=== PATIENT | female | born 1975 | race Caucasian/White ===

== ENCOUNTER 2023-07-09 09:52 | Outpatient (RCR) | payer OTHER, SELFPAY | END 2023-07-09 23:59 | disposition home or self-care (01) | LOC: RPT 09:52 | PROVIDERS: ATTENDING PHYSICIAN Orthopaedic Surgery; FAMILY PHYSICIAN Internal Medicine | DX: Z47.1 Aftercare following joint replacement surgery (principal); Z96.651 Presence of right artificial knee joint; M25.561 Pain in right knee; R26.89 Other abnormalities of gait and mobility | CPT/HCPCS: 97010; 97110; 97116; 97140; 97161; 97530 ==

== ENCOUNTER 2023-08-03 06:54 | Outpatient (RCR) | payer OTHER, SELFPAY | END 2023-08-03 23:59 | disposition home or self-care (01) | LOC: RPT 06:54 | PROVIDERS: ATTENDING PHYSICIAN Orthopaedic Surgery; FAMILY PHYSICIAN Internal Medicine | DX: Z47.1 Aftercare following joint replacement surgery (principal); M25.561 Pain in right knee; Z73.6 Limitation of activities due to disability; R26.89 Other abnormalities of gait and mobility; Z96.651 Presence of right artificial knee joint | CPT/HCPCS: 97010; 97110; 97112; 97116; 97530 ==

== ENCOUNTER 2023-08-19 08:24 | Outpatient (RCR) | payer OTHER, SELFPAY | END 2023-08-19 23:59 | disposition home or self-care (01) | LOC: RPT 08:24 | PROVIDERS: ATTENDING PHYSICIAN Orthopaedic Surgery; FAMILY PHYSICIAN Internal Medicine | DX: Z47.1 Aftercare following joint replacement surgery (principal); M25.561 Pain in right knee; Z73.6 Limitation of activities due to disability; R26.89 Other abnormalities of gait and mobility; Z96.651 Presence of right artificial knee joint | CPT/HCPCS: 97010; 97110; 97530 ==

== ENCOUNTER → 2023-09-08 06:46 | Outpatient (REF) | payer OTHER, SELFPAY | LOC: WDC 06:46 | PROVIDERS: ATTENDING PHYSICIAN Nurse Practitioner Family | DX: Z12.31 Encounter for screening mammogram for malignant neoplasm of breast (principal) | CPT/HCPCS: 77063; 77067 ==

== ENCOUNTER 2023-10-11 02:21 | Emergency (ER) | payer OTHER, SELFPAY ==
[2023-10-11 02:23] VITALS: BP 126/83
[2023-10-11] MEDS: ZOFRAN ODT (ORALLY DISINTEGRATING) 4 MG PO (04:38)
[2023-10-11] MEDS: DILAUDID 1 MG IM (04:38)
[2023-10-11 04:41] VITALS: BP 117/81
[2023-10-11 04:59] LABS: Urine Albumin Negative (Neg - Trace); Urine Bilirubin Negative (Negative); Urine Character Clear (Clear); Urine Color Yellow; Urine Glucose Negative (Negative); Urine Ketone Negative (Negative); Urine Leukocyte Negative (Negative); Urine Nitrite Negative (Negative); Urine Occult Blood Negative (Negative); Urine Urobilinogen Negative (Neg - 1+)
[2023-10-11 05:00] VITALS: BP 112/76
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
[2023-10-11 06:00] VITALS: BP 98/65
== END 2023-10-11 06:30 | disposition home or self-care (01) ==
LOC: EMR 02:21
PROVIDERS: EMERGENCY PHYSICIAN Student in an Organized Health Care Education/Training Program
DX: M54.50 Low back pain, unspecified (principal); G89.29 Other chronic pain
CPT/HCPCS: 99284; 96372; 81003

== ENCOUNTER 2023-11-03 04:03 | Emergency (ER) | payer OTHER, SELFPAY ==
[2023-11-03 04:04] VITALS: BP 140/86
[2023-11-03 04:25] VITALS: BMI 36.4
--- NOTE | 2023-11-03 04:43 | ED.GENMED ---
History of Present Illness
<NATE Pond - Last Filed: 11/03/23 06:04>
General
Chief Complaint: Back Pain
Source: patient
Exam Limitations: none
Time Seen by Provider: 11/03/23 04:41
Nursing documentation reviewed up to this point in time: agreed with
Travel History
Have you had any contact with someone who has COVID-19?: No
Do you have any symptoms of coronavirus? Fever > 100 degrees, chills, cough, shortness of breath, sore throat, loss of taste or smell, muscle aches, or headache?: No
History of Present Illness
History of Present Illness:
This is a 48 year old female with PMHx hypothyroidism, bipolar disorder, anxiety, depression and chronic back pain who presents to the ED for acute on chronic low back pain x1 day. She was seen in the ED on 10/11/2023 for similar symptoms where she
received Hydromorphone IM and Zofran and was advised to continue management with Dr. Escudero, pain management. She does not recall what caused this flare up but reports pain is worse with flexion and alleviated with sitting down. She took Percocet
around 3pm today which alleviated pain for temporarily. She has an scheduled appointment with Dr. Escudero in the upcoming weeks. She denies bowel or bladder incontinence, saddle paresthesias, urinary symptoms. She denies any new injuries. She
denies any recent strenuous activity or extreme exercise.
Past History
<NATE Pond - Last Filed: 11/03/23 06:04>
Past History
ED Past Medical History: Hypothyroidism, Psychiatric (Bipolar disorder, Anxiety, Depression) and Other (Migrainous headaches, ovarian cysts, endometriosis); Negative Asthma, Cancer, HTN, Hypercholesterolemia or NIDDM
ED Past Surgical History: Cholecystectomy, Gynecological (Uterine ablation, Hysterectomy), Orthopedic (Bilateral knee arthroscopy, left dorsal hand nodule removal) and Tonsilectomy
Social History
Tobacco: Non-smoker
Alcohol: Occasional
Drug: None
Personal: Single
Living: alone
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
Family History
Family History: Diabetes
Review of Systems
<NATE Pond - Last Filed: 11/03/23 06:04>
Review of Systems
Allergies reviewed?: Yes
All Other Systems: Not applicable
Constitutional: Reports no symptoms
EENT: Reports no symptoms
Respiratory: Reports no symptoms
Cardiac: Reports no symptoms
ABD/GI: Reports no symptoms
: Reports no symptoms
Musculoskeletal: Reports back pain
Skin: Reports no symptoms
Neurological: Reports no symptoms
Endocrine: Reports no symptoms
Hematologic/Lymphatic: Reports no symptoms
Psychiatric: Reports no symptoms
Phy Exam
<ST SaltyDC - Last Filed: 11/03/23 06:04>
General Physical Exam
General Presentation: well appearing and no apparent distress
General Skin: warm and dry
General Habitus: normal
General Mental: alert
General Hydration: appears well hydrated
ENT Exam
ENT Exam: EOMI, pharynx normal, neck supple and normocephalic
Eye Exam
Eye Exam: PERRL, cornea clear and conjunctiva normal
Cardiovascular Exam
Cardiovascular Exam: regular rate/rhythm, no edema, no murmur and normal peripheral pulses
Pulmonary Exam
Pulmonary Exam: lungs clear, no respiratory distress, no rales, no crackles, no rhonchi, no stridor, no wheezing and no cough
Gastrointestinal Exam
Gastrointestinal Exam: normal bowel sounds, non tender, soft, no organomegaly, no pulsatile mass and non distended
Neurological Exam
Neurological Exam: alert, oriented x3, no motor deficits and speech normal
Musculoskeletal Exam
Musculoskeletal Exam: full ROM and no edema
Skin Exam
Skin Exam: normal color, warm/dry, no rash and no petechia
Psychiatric Exam
Psychiatric Exam: normal mood/affect
Course
<NATE Pond - Last Filed: 11/03/23 06:04>
Orders/Labs/Results
Orders:
Orders
11/03/23 05:46
HYDROmorphone [Dilaudid] 1 mg IM NOW STA
Ondansetron Orally Disint [Zofran Odt (Orally Disintegrating)] 4 mg PO NOW STA
Vital Signs
Initial and Last Documented VS:
Initial Vital Signs
Temp Pulse Resp BP Pulse Ox
97.8 F 116 24 140/86 98
11/03/23 04:04 11/03/23 04:04 11/03/23 04:04 11/03/23 04:04 11/03/23 04:04
Last Documented Vital Signs
Temp Pulse Resp BP Pulse Ox
97.8 F 93 20 117/69 94
11/03/23 04:04 11/03/23 05:52 11/03/23 05:52 11/03/23 05:52 11/03/23 05:52
<Taj Tucker DO - Last Filed: 11/03/23 06:27>
Orders/Labs/Results
Orders:
Orders
11/03/23 05:46
HYDROmorphone [Dilaudid] 1 mg IM NOW STA
Ondansetron Orally Disint [Zofran Odt (Orally Disintegrating)] 4 mg PO NOW STA
Vital Signs
Initial and Last Documented VS:
Initial Vital Signs
Temp Pulse Resp BP Pulse Ox
97.8 F 116 24 140/86 98
11/03/23 04:04 11/03/23 04:04 11/03/23 04:04 11/03/23 04:04 11/03/23 04:04
Last Documented Vital Signs
Temp Pulse Resp BP Pulse Ox
97.8 F 93 20 117/69 94
11/03/23 04:04 11/03/23 05:52 11/03/23 05:52 11/03/23 05:52 11/03/23 05:52
<NATE Pond - Last Filed: 11/03/23 06:04>
MDM/Problems Addressed
Differential Diagnosis Includes:
Low back pain exacerbation, muscle strain, cauda equina
Muscle strain considered due to back pain but normal physical exam. She is not TTP on MSK exam. Cauda equina considered but she denies bladder/bowel incontinence or saddle paresthesias. I suspect this is low back pain exacerbation due to chronicity
of her back pain with occasional flare ups.
<NATE oPnd - Last Filed: 11/03/23 06:04>
*Critical Care Note
Total Time (30-74mins, 75-104mins- exclusive of procedures): Not Applicable
<Taj Tucker DO - Last Filed: 11/03/23 06:27>
Update Note
Update Note:
Patient has an appointment with Dr Rainey in the next few weeks.
ED Attending Note
<NATE Pond - Last Filed: 11/03/23 06:04>
-
Portions of this chart may have been created with voice recognition software.� Occasional wrong word or��sound alike� substitutions may have occurred due to the inherent limitations of voice recognition software.
<Taj Tucker DO - Last Filed: 11/03/23 06:27>
ED Attending Note
Patient seen and examined by attending physician: Yes
I performed the substantive portion of visit, reviewed & personally made and approve the management plan that is documented in note by myself or ANEESH.: Yes
ED Attending Note:
Pleasant 48-year-old female who presents with acute on chronic low back pain. She states that she started to have pain yesterday. She contacted her pain management doctor who did not return her call so she came into the emergency department. She
was seen in the ER several weeks ago for identical pain and states that shot was able to fix her back. She denies fever chills nausea or vomiting. Reports no chest pain or shortness of breath. Denies bowel and bladder retention or incontinence.
States that this pain is the exact same pain that she typically gets when she has not had an intra-articular facet injection. Patient was seen in conjunction with the PA student. I have reviewed and agree with the history and treatment plan
presented. On my independent physical exam, patient is awake, alert, and oriented x3, resting comfortably on the bed. Heart is regular rate and rhythm. Lung exam clear to auscultation bilaterally. No wheezes rales or rhonchi present. Moves all
4 extremities. Denies paresthesias.
Patient did receive a shot of intramuscular Dilaudid. This has worked for her in the past. She does understand that we cannot continue to do this for her. She will be more on top of her pain management prescriptions.
Discharge Plan
Departure
Patient Disposition: Home (Routine Discharge)
Date of Disposition: 11/03/23
Time of Disposition: 05:46
Patient with high blood pressure during this ER visit?: No
Condition: Good
Covid-19: Not Applicable
Discharge Problem:
Chronic back pain
Instructions: Low Back Pain (DC)
Prescriptions:
No Action
duloxetine 60 MG capsule,delayed release(DR/EC)
60 mg PO DAILY
lamotrigine [Lamictal XR] 250 MG tablet extended release 24hr
250 mg PO DAILY
quetiapine [Seroquel] 100 mg Tablet
100 mg PO DAILY
selenium 200 mcg Tablet
200 mcg PO DAILY
gabapentin 800 mg Tablet
800 mg PO DAILY
levothyroxine [Synthroid] 200 mcg Tablet
200 mcg PO DAILY
topiramate [Topamax] 200 mg Tablet
200 mg PO DAILY
Vraylar 1.5 mg Capsule
1.5 mg PO DAILY
oxycodone-acetaminophen [Endocet] 5-325 mg tablet
1 tab PO Q6H PRN (Reason: pain) Qty: 15 0RF
Rx Instructions:
1-2 tabs every 6 hours prn mod-severe pain
Referrals:
Jeremie Conley I., DO [Family Provider] -
Activity Restrictions/Additional Instructions:
It was a pleasure meeting you and taking part in your care. We hope for your continued healing and wellness.
Please read discharge instructions in their entirety. However, they are for general education and may not describe your exact diagnosis at discharge. Information on your ER visit and medical conditions were discussed with you along with appropriate
follow up information...
If indicated, please take your medications as instructed and indicated on discharge paperwork.
Please schedule a follow up appointment as directed. Call to schedule an appointment
Please return to the emergency department with ANY change in, persisting, or worsening of symptoms. If any of your symptoms do not improve, or persist, or become more severe within 6-12 hours, please return to the emergency department for further
care.
Please return to the emergency department if you develop a headache, neck pain/stiffness, fever greater than 100.4F, chest pain, shortness of breath, persistent nausea, vomiting, slurred speech, difficulty walking, numbness/tingling, weakness, signs
of infection or any other symptoms that are worrisome to you.
If you have any questions or concerns please do not hesitate to call the Hospital at or E-mail me directly at [email or web address]
Interventions
Interventions:
*Risk Screen - Suicide Last Done: 11/03/23 04:04
*General Assessment Last Done: 11/03/23 04:25
*Neglect/Abuse Screening Last Done: 11/03/23 04:04
ED- Fall Risk Assessment Last Done: 11/03/23 04:25
*ED COVID-19 Vaccine History Last Done: 11/03/23 04:25
ED-Musculoskeletal Assessment Last Done: 11/03/23 04:25
Discharge Date and Time
Print Language: FRISIAN
[2023-11-03 05:52] VITALS: BP 117/69
[2023-11-03] MEDS: ZOFRAN ODT (ORALLY DISINTEGRATING) 4 MG PO (05:54)
[2023-11-03] MEDS: DILAUDID 1 MG IM (05:54)
== END 2023-11-03 06:37 | disposition home or self-care (01) ==
LOC: EMR 04:03
PROVIDERS: EMERGENCY PHYSICIAN Student in an Organized Health Care Education/Training Program; FAMILY PHYSICIAN Internal Medicine
DX: G89.29 Other chronic pain (principal); M54.50 Low back pain, unspecified; E03.9 Hypothyroidism, unspecified; F31.9 Bipolar disorder, unspecified; F41.9 Anxiety disorder, unspecified
CPT/HCPCS: 99284; 96372

== ENCOUNTER → 2023-11-15 07:32 | Outpatient (REF) | payer OTHER, SELFPAY | LOC: EMG 07:32 | PROVIDERS: ATTENDING PHYSICIAN Physician Assistant Medical; FAMILY PHYSICIAN Internal Medicine | DX: R20.0 Anesthesia of skin (principal) | CPT/HCPCS: 95886; 95911 ==

== ENCOUNTER → 2023-11-17 07:35 | Outpatient (REF) | payer OTHER, SELFPAY | LOC: RAD 07:35 | PROVIDERS: ATTENDING PHYSICIAN Physician Assistant Medical; FAMILY PHYSICIAN Internal Medicine | DX: M54.16 Radiculopathy, lumbar region (principal) | CPT/HCPCS: 72131 ==

== ENCOUNTER → 2023-11-18 10:29 | Outpatient (REF) | payer OTHER, SELFPAY | LOC: RAD 10:29 | PROVIDERS: ATTENDING PHYSICIAN Physician Assistant Medical; FAMILY PHYSICIAN Internal Medicine | DX: M54.16 Radiculopathy, lumbar region (principal) | CPT/HCPCS: 72110 ==

== ENCOUNTER 2023-12-10 18:36 | Emergency (ER) | payer OTHER, SELFPAY ==
[2023-12-10 18:39] VITALS: BP 139/88
[2023-12-10 19:32] VITALS: BMI 34.6
[2023-12-10 20:02] LABS: % Basophils 0.4 % (0-2); % Eosinophils 0.8 % (0-6); % Immature Granulocytes 0.4 % (0-0.5); % Lymphocytes 31.8 % (20.5-51.1); % Monocytes 8.1 % (1.7-9.3); % Neutrophils 58.5 % (42.2-75.2); Absolute Eosinophils 0.1 10^3/uL (0-0.7); Absolute Lymphocytes 2.4 10^3/uL (1.2-3.4); Absolute Monocytes 0.6 10^3/uL (0.1-0.6); Absolute Neutrophils 4.4 10^3/uL (1.4-6.5); Hematocrit 35.4 % (37.0-47.0); Hemoglobin 12.4 g/dL (12.0-16.0); Mean Corpuscular Hgb 31.2 pg (27.0-31.0); Mean Corpuscular Volume 88.9 fL (81.0-99.0); Mean Platelet Volume 11.3 fL (7.4-10.4); Nucleated Red Blood Cells % 0 %; Platelet Count 227 10^3/uL (130-400); Red Blood Cell Count 3.98 10^6/uL (4.20-5.40); Red Cell Dist. Width 13.4 % (11.5-14.5); White Blood Cell Count 7.6 10^3/uL (4.8-10.8)
[2023-12-10] MEDS: ZOFRAN ODT (ORALLY DISINTEGRATING) 4 MG PO (20:44)
[2023-12-10] MEDS: IMODIUM 2 MG PO (20:44)
[2023-12-10 20:45] VITALS: BP 118/71
[2023-12-10 20:45] LABS: Blood Urea Nitrogen 18 mg/dl (7-17); Carbon Dioxide 17 mmol/L (22-30); Chloride 111 mmol/L (98-107); Estimated Creatinine Clearance > 125 ml/min; Glucose 134 mg/dl (70-99); Sodium 138 mmol/L (135-145); eGFR > 60.00
--- NOTE | 2023-12-10 20:53 | ED.GENMED ---
History of Present Illness
General
Chief Complaint: Abdominal Pain
Source: patient
Exam Limitations: none
Time Seen by Provider: 12/10/23 20:07
Nursing documentation reviewed up to this point in time: agreed with
Travel History
Have you had any contact with someone who has COVID-19?: No
Do you have any symptoms of coronavirus? Fever > 100 degrees, chills, cough, shortness of breath, sore throat, loss of taste or smell, muscle aches, or headache?: No
History of Present Illness
History of Present Illness:
48-year-old female presenting to the emergency department today with concerns of diarrhea over the past 5 days has been taking Pepto-Bismol without relief has had slightly less diarrhea over the past few days did notice some upper abdominal pain.
Stool has been very dark in color. No chest pain shortness of breath.
Past History
Past History
ED Past Medical History: Hypothyroidism, Psychiatric (Bipolar disorder, Anxiety, Depression) and Other (Migrainous headaches, ovarian cysts, endometriosis); Negative Asthma, Cancer, HTN, Hypercholesterolemia or NIDDM
ED Past Surgical History: Cholecystectomy, Gynecological (Uterine ablation, Hysterectomy), Orthopedic (Bilateral knee arthroscopy, left dorsal hand nodule removal) and Tonsilectomy
Social History
Tobacco: Non-smoker
Alcohol: Occasional
Drug: None
Personal: Single
Living: alone
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
Family History
Family History: Diabetes
Review of Systems
Review of Systems
Allergies reviewed?: Yes
All Other Systems: ROS reviewed and negative except as documented in HPI and ROS
Phy Exam
Physical Exam
Physical Exam:
GENERAL: Alert , in no apparent distress
EYE: pupils equal and reactive
NECK: Supple, no significant adenopathy.
ENT: o/p clr, mmm.
CARDIAC: Regular rate and rhythm .
LUNGS: Clear breath sounds bilaterally, no acute respiratory distress, no wheezes/rales/rhonchi
ABDOMEN: Soft, without focal tenderness, no r/g, no cvat rectal examination revealing dark brown almost black appearing stool but guaiac negative.
NEUROLOGICAL: Alert and oriented, no focal neuro deficits
SKIN: Warm and dry, skin intact.
MUSCULOSKELETAL: No edema, well perfused.
PSYCH: Normal and appropriate interaction.
Course
Orders/Labs/Results
Orders:
Orders
12/10/23 19:39
Basic Metabolic Panel Urgent
Comment: BMP NO K
Complete Blood Count/With Diff Urgent
12/10/23 20:37
STOOL [C difficile Antigen & Toxins] Urgent
MARTHA Source: Feces/Stool
Specimen Description:
Stool Culture Urgent
MARTHA Source: Feces/Stool
Specimen Description:
Yersinia Culture-Stool Urgent
MARTHA Source: Feces/Stool
Specimen Description:
Loperamide [Imodium] 2 mg PO NOW STA
Ondansetron Orally Disint [Zofran Odt (Orally Disintegrating)] 4 mg PO NOW STA
12/10/23 21:21
Comprehensive Metabolic Panel Urgent
Lipase Urgent
Abnormal Lab Results
12/10/23 12/10/23
19:39 21:21
RBC 3.98 L 10^6/uL
(4.20-5.40)
Hct 35.4 L %
(37.0-47.0)
MCH 31.2 H pg
(27.0-31.0)
MPV 11.3 H fL
(7.4-10.4)
Chloride 111 H mmol/L 113 H mmol/L
(98-107) (98-107)
Carbon Dioxide 17 L mmol/L 18 L mmol/L
(22-30) (22-30)
BUN 18 H mg/dl
(7-17)
Glucose 134 H mg/dl 119 H mg/dl
(70-99) (70-99)
12/10/23 19:39
12/10/23 21:21
Vital Signs
Initial and Last Documented VS:
Initial Vital Signs
Temp Pulse Resp BP Pulse Ox
97.6 F 104 20 139/88 97
12/10/23 18:39 12/10/23 18:39 12/10/23 18:39 12/10/23 18:39 12/10/23 18:39
Last Documented Vital Signs
Temp Pulse Resp BP Pulse Ox
97.6 F 76 16 118/71 100
12/10/23 18:39 12/10/23 20:45 12/10/23 20:45 12/10/23 20:45 12/10/23 20:45
MDM/Problems Addressed
MDM/Problems Addressed:
48-year-old female presenting to the emergency department today with concerns of ongoing diarrhea for about 5 days. Upon arrival mildly tachycardic but otherwise vital signs are normal afebrile. Heart rate improving to the 70s after receiving some
fluids. Labs obtained without any white count normal hemoglobin rectal examination reveals no blood in the stool. Dark discoloration of stool likely secondary to Pepto-Bismol usage. Concerning the patient's ongoing diarrhea stool cultures were
sent otherwise patient does have benign abdomen vital signs stable appears to be stable for outpatient management.
*Critical Care Note
Total Time (30-74mins, 75-104mins- exclusive of procedures): Not Applicable
ED Attending Note
-
Portions of this chart may have been created with voice recognition software.� Occasional wrong word or��sound alike� substitutions may have occurred due to the inherent limitations of voice recognition software.
Discharge Plan
Departure
Patient Disposition: Home (Routine Discharge)
Date of Disposition: 12/10/23
Time of Disposition: 22:49
Patient with high blood pressure during this ER visit?: No
Condition: Good
Covid-19: Not Applicable
Discharge Problem:
Diarrhea
Instructions: Diarrhea, Adult ED
Prescriptions:
No Action
duloxetine 60 MG capsule,delayed release(DR/EC)
60 mg PO DAILY
lamotrigine [Lamictal XR] 250 MG tablet extended release 24hr
250 mg PO DAILY
quetiapine [Seroquel] 100 mg Tablet
100 mg PO DAILY
selenium 200 mcg Tablet
200 mcg PO DAILY
gabapentin 800 mg Tablet
800 mg PO DAILY
levothyroxine [Synthroid] 200 mcg Tablet
200 mcg PO DAILY
topiramate [Topamax] 200 mg Tablet
200 mg PO DAILY
Vraylar 1.5 mg Capsule
1.5 mg PO DAILY
oxycodone-acetaminophen [Endocet] 5-325 mg tablet
1 tab PO Q6H PRN (Reason: pain) Qty: 15 0RF
Rx Instructions:
1-2 tabs every 6 hours prn mod-severe pain
Referrals:
Jeremie Conley I., DO [Family Provider] -
Activity Restrictions/Additional Instructions:
You came to the emergency department today with concerns of diarrhea. Here you had a reassuring assessment with normal labs. You can take Imodium 1 tab every 4-6 hours as needed over the next few days return to the emergency department for any
worsening, new or concerning symptoms.
Interventions
Interventions:
*Risk Screen - Suicide Last Done: 12/10/23 19:32
*General Assessment Last Done: 12/10/23 18:43
*Neglect/Abuse Screening Last Done: 12/10/23 19:32
*ED COVID-19 Vaccine History Last Done: 12/10/23 18:43
TQ-Dpnzxf-Yhuztsyqns Assessment Last Done: 12/10/23 19:32
Discharge Date and Time
Print Language: BANGLADESHI
[2023-12-10 21:51] LABS: ALT (SGPT) 11 U/L (0-35); AST (SGOT) 18 U/L (14-36); Albumin 3.7 g/dl (3.5-5.0); Alkaline Phosphatase 68 U/L (38-126); Blood Urea Nitrogen 16 mg/dl (7-17); Calcium 8.9 mg/dl (8.4-10.2); Carbon Dioxide 18 mmol/L (22-30); Chloride 113 mmol/L (98-107); Estimated Creatinine Clearance > 125 ml/min; Glucose 119 mg/dl (70-99); Lipase 141 U/L (23-300); Potassium 3.5 mmol/L (3.5-5.1); Sodium 140 mmol/L (135-145); Total Bilirubin 0.2 mg/dl (0.2-1.3); Total Protein 6.5 g/dl (6.3-8.2); eGFR > 60.00
== END 2023-12-10 23:20 | disposition home or self-care (01) ==
LOC: EMR 18:36
PROVIDERS: Emergency Medicine; EMERGENCY PHYSICIAN Emergency Medicine; FAMILY PHYSICIAN Internal Medicine
DX: R19.7 Diarrhea, unspecified (principal); E03.9 Hypothyroidism, unspecified; F31.9 Bipolar disorder, unspecified; F41.9 Anxiety disorder, unspecified; Z83.3 Family history of diabetes mellitus; Z90.49 Acquired absence of other specified parts of digestive tract; Z90.710 Acquired absence of both cervix and uterus
CPT/HCPCS: 99283; 80048; 80053; 83690; 85025

== ENCOUNTER → 2023-12-13 06:33 | Outpatient (REF) | payer OTHER, SELFPAY | LOC: MRI 06:33 | PROVIDERS: ATTENDING PHYSICIAN Orthopaedic Surgery; FAMILY PHYSICIAN Internal Medicine | DX: M25.562 Pain in left knee (principal) | CPT/HCPCS: 73721 ==

== ENCOUNTER 2024-01-04 17:16 | Emergency (ER) | payer OTHER, SELFPAY ==
[2024-01-04 17:27] VITALS: BP 139/91
[2024-01-04 19:20] VITALS: BMI 35.1
--- NOTE | 2024-01-04 19:29 | ED.GENMED ---
History of Present Illness
General
Chief Complaint: Bowel Problem
Source: patient
Exam Limitations: none
Time Seen by Provider: 01/04/24 19:17
History of Present Illness
History of Present Illness:
See MDM
Past History
Past History
ED Past Medical History: Hypothyroidism, Psychiatric (Bipolar disorder, Anxiety, Depression) and Other (Migrainous headaches, ovarian cysts, endometriosis); Negative Asthma, Cancer, HTN, Hypercholesterolemia or NIDDM
ED Past Surgical History: Cholecystectomy, Gynecological (Uterine ablation, Hysterectomy), Orthopedic (Bilateral knee arthroscopy, left dorsal hand nodule removal) and Tonsilectomy
Social History
Tobacco: Non-smoker
Alcohol: Occasional
Drug: None
Personal: Single
Living: alone
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
Family History
Family History: Diabetes
Phy Exam
Physical Exam
Physical Exam:
See MDM
Course
Orders/Labs/Results
Orders:
Orders
01/04/24 17:31
Abdominal Series [CR Obstruct Series W/pa Chest] Urgent
Comment:
Reason For Exam: no BM in 3 weeks, abd pain
01/04/24 17:32
EKG [Electrocardiogram (*1)] Urgent
Reason for Study: Abdominal Pain
EKG- Treatment ONCE
01/04/24 19:28
Enema- Treatment ONCE
Type: Milk of Molasses
0.9% Sodium Chloride 1000 ml [Nss] 1,000 ml IV BOLUS
Ketorolac [Toradol] 30 mg IV NOW STA
01/04/24 19:29
CT Abd/pelvis W Iv Cont Urgent
Comment:
Reason For Exam: general abd pain, no BM x 3 weeks
01/04/24 21:56
CBC/With Diff [Complete Blood Count/With Diff] Urgent
CMP [Comprehensive Metabolic Panel] Urgent
01/04/24 23:00
Lactulose [Duphalac/Chronulac] 20 grams PO ONCE ONE
01/04/24 23:02
HYDROmorphone [Dilaudid] 0.5 mg IV NOW STA
Abnormal Lab Results
01/04/24
21:56
WBC 11.1 H 10^3/uL
(4.8-10.8)
RBC 3.87 L 10^6/uL
(4.20-5.40)
Hgb 11.9 L g/dL
(12.0-16.0)
Hct 35.6 L %
(37.0-47.0)
MPV 10.5 H fL
(7.4-10.4)
Abs Immat Gran (auto) 0.2 H 10^3/uL
(0-0.05)
Absolute Neuts (auto) 6.6 H 10^3/uL
(1.4-6.5)
Absolute Monos (auto) 0.9 H 10^3/uL
(0.1-0.6)
Immature Gran % 1.8 H %
(0-0.5)
Chloride 111 H mmol/L
(98-107)
Carbon Dioxide 21 L mmol/L
(22-30)
01/04/24 21:56
01/04/24 21:56
Vital Signs
Initial and Last Documented VS:
Initial Vital Signs
Temp Pulse Resp BP Pulse Ox
98.6 F 103 18 139/91 98
01/04/24 17:27 01/04/24 17:27 01/04/24 17:27 01/04/24 17:27 01/04/24 17:27
Last Documented Vital Signs
Temp Pulse Resp BP Pulse Ox
97.8 F 81 20 113/77 99
01/04/24 23:15 01/04/24 23:15 01/04/24 23:15 01/04/24 23:15 01/04/24 23:15
MDM/Problems Addressed
Differential Diagnosis Includes:
HPI and MDM Narrative:
48-year-old female presenting with abdominal distention and constipation. Patient states she has not had a bowel movement in 3 weeks. She states she has abnormal bowel movements to begin with but believes some of this was related to a recent
admission at [facility]. She was at [facility] for 10 days for intractable migraines. During that time, she did not have any bowel movements and is concerned it could be a side effect of the medicine. She denies being on narcotics. She has tried
stool softeners, laxatives and enemas.
Prior to my evaluation, patient received bowel obstruction x-rays and showing no evidence of obstruction. There is evidence of large stool burden. Patient is passing gas
Physical exam
General: Well appearing and non-toxic
HEENT: protecting airway. Dry mucous membranes
Neck: appears supple
CV: No evidence of cyanosis
Resp: No accessory muscle use
Abd: Distended. No peritoneal signs. Soft
Extremities: No deformities
Neuro: alert
Psych: Normal affect
Skin: Intact
Problems Addressed including Acute and Chronic Conditions affecting care:
1. Constipation
Acuity: acute
Prognosis: stable
Details: No stool in the rectal vault. Will give trial of milk of molasses enema. Will obtain CT abdomen/pelvis in the meantime looking for any evidence of mass
Updates
7:30 PM rectal exam performed with nurse wood milling machine tender Cathryn. No stool in the rectal vault
Will obtain CT looking for mass and will give milk of molasses enema
[address] negative for obstruction or mass. It does reference colonic stool burden. Patient still unable to pass stool but has increase of gas after the enema. Will give dose of lactulose
12:15 AM after prolonged observation, patient states she is feeling better and feels her 'bowels break up' and states she feels comfortable going home
Differential Diagnosis (but not limited to): Bowel obstruction, colon mass, constipation
Testing considered: Lactic acid
Drug therapy (if applicable): OTC meds, please see d/c instruction regarding Rx drugs
Amount and/or Complexity of Data Reviewed
Clinical info obtained from: Patient
External data reviewed: N/A
Labs I independently reviewed (but not limited to): Mild leukocytosis, LFTs and electrolytes within normal limits
Radiology: X-ray independently reviewed: No obstruction on abdominal x-ray. Large stool burden
The CT scan was personally and independently reviewed. In addition, official CT report reviewed.
Pulse Ox: not hypoxic
EKG independently reviewed: N/A
Loan Clerk: N/A
Critical Care: N/A
Risk of Complication:
Social Determinants of health: Good social support
Discussed with other providers: N/A
Escalation of Care includes Admit/Obs: After being observed in the Emergency Department, pt stable for discharge.
Occasional wrong word or 'sound a like' substitutions may have occurred due to the inherent limitations of voice recognition software. Read the chart carefully and recognize, using context, where substitutions have occurred.
*Critical Care Note
Total Time (30-74mins, 75-104mins- exclusive of procedures): Not Applicable
ED Attending Note
-
Portions of this chart may have been created with voice recognition software.� Occasional wrong word or��sound alike� substitutions may have occurred due to the inherent limitations of voice recognition software.
Discharge Plan
Departure
Patient Disposition: Home (Routine Discharge)
Date of Disposition: 01/05/24
Time of Disposition: 00:12
Patient with high blood pressure during this ER visit?: No
Discharge Problem:
Constipation
Instructions: Constipation, Adult (DC)
Prescriptions:
New
lactulose 20 gram/30 mL solution
20 g PO BID 3 Days Qty: 180 0RF
No Action
duloxetine 60 MG capsule,delayed release(DR/EC)
60 mg PO DAILY
lamotrigine [Lamictal XR] 250 MG tablet extended release 24hr
250 mg PO DAILY
quetiapine [Seroquel] 100 mg Tablet
100 mg PO DAILY
selenium 200 mcg Tablet
200 mcg PO DAILY
gabapentin 800 mg Tablet
800 mg PO DAILY
levothyroxine [Synthroid] 200 mcg Tablet
200 mcg PO DAILY
topiramate [Topamax] 200 mg Tablet
200 mg PO DAILY
Vraylar 1.5 mg Capsule
1.5 mg PO DAILY
oxycodone-acetaminophen [Endocet] 5-325 mg tablet
1 tab PO Q6H PRN (Reason: pain) Qty: 15 0RF
Rx Instructions:
1-2 tabs every 6 hours prn mod-severe pain
Referrals:
Jeremie Conley DO [Family Provider] -
Activity Restrictions/Additional Instructions:
Please return for any worsening symptoms.
You may return at any time if you have further concerns.
Please follow up with your doctor at the first available appointment, preferably this week.
Please take the lactulose for the next 3 days if you remain constipated.
Thank you for choosing [facility].
Interventions
Interventions:
*Risk Screen - Suicide Last Done: 01/04/24 17:27
*General Assessment Last Done: 01/04/24 17:27
*Neglect/Abuse Screening Last Done: 01/04/24 17:31
ED- Fall Risk Assessment Last Done: 01/04/24 19:20
*ED COVID-19 Vaccine History Last Done: 01/04/24 19:20
LB-Sodhhm-Tvugiawbnz Assessment Last Done: 01/04/24 19:20
Discharge Date and Time
Print Language: INDIAN
[2024-01-04] MEDS: NSS 1000 IV (21:19)
[2024-01-04] MEDS: TORADOL 30 MG IV (21:20)
[2024-01-04 22:01] LABS: % Basophils 0.4 % (0-2); % Eosinophils 1.6 % (0-6); % Immature Granulocytes 1.8 % (0-0.5); % Lymphocytes 28.5 % (20.5-51.1); % Monocytes 8.1 % (1.7-9.3); % Neutrophils 59.6 % (42.2-75.2); Absolute Eosinophils 0.2 10^3/uL (0-0.7); Absolute Immature Granulocytes 0.2 10^3/uL (0-0.05); Absolute Lymphocytes 3.2 10^3/uL (1.2-3.4); Absolute Monocytes 0.9 10^3/uL (0.1-0.6); Absolute Neutrophils 6.6 10^3/uL (1.4-6.5); Hematocrit 35.6 % (37.0-47.0); Hemoglobin 11.9 g/dL (12.0-16.0); Mean Corp Hgb Conc. 33.4 g/dL (33.0-37.0); Mean Corpuscular Hgb 30.7 pg (27.0-31.0); Mean Platelet Volume 10.5 fL (7.4-10.4); Nucleated Red Blood Cells % 0 %; Platelet Count 202 10^3/uL (130-400); Red Blood Cell Count 3.87 10^6/uL (4.20-5.40); Red Cell Dist. Width 13.6 % (11.5-14.5); White Blood Cell Count 11.1 10^3/uL (4.8-10.8)
[2024-01-04 22:13] LABS: ALT (SGPT) 15 U/L (0-35); AST (SGOT) 17 U/L (14-36); Albumin 3.8 g/dl (3.5-5.0); Alkaline Phosphatase 69 U/L (38-126); Blood Urea Nitrogen 17 mg/dl (7-17); Calcium 8.8 mg/dl (8.4-10.2); Carbon Dioxide 21 mmol/L (22-30); Chloride 111 mmol/L (98-107); Estimated Creatinine Clearance > 125 ml/min; Glucose 85 mg/dl (70-99); Potassium 4.1 mmol/L (3.5-5.1); Sodium 140 mmol/L (135-145); Total Bilirubin 0.3 mg/dl (0.2-1.3); Total Protein 6.3 g/dl (6.3-8.2); eGFR > 60.00
[2024-01-04] MEDS: DILAUDID 0.5 MG IV (23:14)
[2024-01-04] MEDS: DUPHALAC/CHRONULAC 20 GRAMS PO (23:14)
[2024-01-04 23:15] VITALS: BP 113/77
== END 2024-01-05 00:39 | disposition home or self-care (01) ==
LOC: EMR 17:16
PROVIDERS: Emergency Medicine; EMERGENCY PHYSICIAN Student in an Organized Health Care Education/Training Program; FAMILY PHYSICIAN Internal Medicine
DX: K59.00 Constipation, unspecified (principal); R10.9 Unspecified abdominal pain; R14.0 Abdominal distension (gaseous); E03.9 Hypothyroidism, unspecified; F31.9 Bipolar disorder, unspecified; F32.A Depression, unspecified; F41.9 Anxiety disorder, unspecified; Z90.49 Acquired absence of other specified parts of digestive tract; Z88.5 Allergy status to narcotic agent; Z88.1 Allergy status to other antibiotic agents; Z91.040 Latex allergy status
CPT/HCPCS: 99284; 96375; 96361; 96374; 74022; 74177; 80053; 85025; 93005; Q9967

== ENCOUNTER 2024-01-29 17:02 | Emergency (ER) | payer OTHER, SELFPAY ==
[2024-01-29 17:06] VITALS: BP 143/90
[2024-01-29] MEDS: DECADRON 10 MG PO (19:45)
[2024-01-29] MEDS: TORADOL 30 MG IM (19:46)
[2024-01-29] MEDS: PERCOCET 5/325 2 TABLET PO (19:46)
[2024-01-29 20:00] VITALS: BP 140/90
--- NOTE | 2024-01-29 21:36 | ED.GENMED ---
History of Present Illness
General
Chief Complaint: Back Pain
Source: patient
Exam Limitations: none
Time Seen by Provider: 01/29/24 18:19
Nursing documentation reviewed up to this point in time: agreed with
History of Present Illness
History of Present Illness:
48-year-old female with past medical history of anxiety depression presenting to the emergency department with concerns of back pain. Does have a history of chronic back pain. Has had ongoing achiness over the past few days difficult to treat at
home. Has been taking Motrin and Tylenol without relief. Does have pain management doctor scheduled follow-up in 5 days.
Past History
Past History
ED Past Medical History: Hypothyroidism, Psychiatric (Bipolar disorder, Anxiety, Depression) and Other (Migrainous headaches, ovarian cysts, endometriosis); Negative Asthma, Cancer, HTN, Hypercholesterolemia or NIDDM
ED Past Surgical History: Cholecystectomy, Gynecological (Uterine ablation, Hysterectomy), Orthopedic (Bilateral knee arthroscopy, left dorsal hand nodule removal) and Tonsilectomy
Social History
Tobacco: Non-smoker
Alcohol: Occasional
Drug: None
Personal: Single
Living: alone
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
Family History
Family History: Diabetes
Review of Systems
Review of Systems
Allergies reviewed?: Yes
All Other Systems: ROS reviewed and negative except as documented in HPI and ROS
Phy Exam
Physical Exam
Physical Exam:
GENERAL: Alert , in no apparent distress
EYE: pupils equal and reactive
NECK: Supple, no significant adenopathy.
ENT: o/p clr, mmm.
CARDIAC: Regular rate and rhythm .
LUNGS: Clear breath sounds bilaterally, no acute respiratory distress, no wheezes/rales/rhonchi
ABDOMEN: Soft, without focal tenderness, no r/g, no cvat
NEUROLOGICAL: Alert and oriented, no focal neuro deficits
SKIN: Warm and dry, skin intact.
MUSCULOSKELETAL: No edema, well perfused.
PSYCH: Normal and appropriate interaction.
Course
Orders/Labs/Results
Orders:
Orders
01/29/24 19:26
Dexamethasone [Decadron] 10 mg PO NOW STA
Ketorolac [Toradol] 30 mg IM NOW STA
Oxycodone/Acetaminophen [Percocet 5/325] 2 tablet PO NOW STA
Vital Signs
Initial and Last Documented VS:
Initial Vital Signs
Temp Pulse Resp BP Pulse Ox
98.4 F 108 18 143/90 97
01/29/24 17:06 01/29/24 17:06 01/29/24 17:06 01/29/24 17:06 01/29/24 17:06
Last Documented Vital Signs
Temp Pulse Resp BP Pulse Ox
98.4 F 86 20 104/73 94
01/29/24 17:06 01/29/24 21:46 01/29/24 21:46 01/29/24 21:46 01/29/24 21:46
MDM/Problems Addressed
MDM/Problems Addressed:
48-year-old female presenting to the emergency department today with concerns of low back pain. Pain is worse with some movements. No red flag symptoms no bowel or bladder dysfunction no neurologic symptoms no reproducible tenderness of the back
but pain made worse with movements of lower extremities. Seems to be consistent with mechanical back pain. Patient was given a steroid and Toradol with significant improvement of symptoms. Patient appears stable for discharge at this time will
follow-up closely with the pain management doctor return precautions were given.
*Critical Care Note
Total Time (30-74mins, 75-104mins- exclusive of procedures): Not Applicable
ED Attending Note
-
Portions of this chart may have been created with voice recognition software.� Occasional wrong word or��sound alike� substitutions may have occurred due to the inherent limitations of voice recognition software.
Discharge Plan
Departure
Patient Disposition: Home (Routine Discharge)
Date of Disposition: 01/29/24
Time of Disposition: 21:36
Patient with high blood pressure during this ER visit?: No
Condition: Good
Covid-19: Not Applicable
Discharge Problem:
Back pain
Instructions: Low Back Pain (DC)
Prescriptions:
New
prednisone 20 mg tablet
40 mg PO DAILY 4 Days Qty: 8 0RF
No Action
duloxetine 60 MG capsule,delayed release(DR/EC)
60 mg PO DAILY
lamotrigine [Lamictal XR] 250 MG tablet extended release 24hr
250 mg PO DAILY
quetiapine [Seroquel] 100 mg Tablet
100 mg PO DAILY
selenium 200 mcg Tablet
200 mcg PO DAILY
gabapentin 800 mg Tablet
800 mg PO DAILY
levothyroxine [Synthroid] 200 mcg Tablet
200 mcg PO DAILY
topiramate [Topamax] 200 mg Tablet
200 mg PO DAILY
Vraylar 1.5 mg Capsule
1.5 mg PO DAILY
oxycodone-acetaminophen [Endocet] 5-325 mg tablet
1 tab PO Q6H PRN (Reason: pain) Qty: 15 0RF
Rx Instructions:
1-2 tabs every 6 hours prn mod-severe pain
lactulose 20 gram/30 mL solution
20 g PO BID 3 Days Qty: 180 0RF
Referrals:
Jeremie Conley I., DO [Family Provider] -
Activity Restrictions/Additional Instructions:
You came to the emergency department today with concerns of back pain. Please take the steroids over the next few days and follow-up closely with your pain management doctor. Return to the emergency department for any worsening, new or concerning
symptoms.
Interventions
Interventions:
*Risk Screen - Suicide Last Done: 01/29/24 17:06
*General Assessment Last Done: 01/29/24 17:06
*Neglect/Abuse Screening Last Done: 01/29/24 17:06
*Nursing Disposition Last Done: 01/29/24 21:40
ED-Musculoskeletal Assessment Last Done: 01/29/24 18:07
Discharge Date and Time
Discharge Date/Time: 01/29/24 22:23
Print Language: ARMENIAN
[2024-01-29 21:46] VITALS: BP 104/73
== END 2024-01-29 22:23 | disposition home or self-care (01) ==
LOC: EMR 17:02
PROVIDERS: EMERGENCY PHYSICIAN Emergency Medicine; FAMILY PHYSICIAN Internal Medicine
DX: M54.9 Dorsalgia, unspecified (principal); G89.29 Other chronic pain; E03.9 Hypothyroidism, unspecified; F31.9 Bipolar disorder, unspecified
CPT/HCPCS: 99284; 96372

== ENCOUNTER 2024-01-30 04:51 | Emergency (ER) | payer OTHER, SELFPAY ==
[2024-01-30 04:54] VITALS: BP 133/91; BMI 31.4
--- NOTE | 2024-01-30 05:15 | ED.GENMED ---
History of Present Illness
General
Chief Complaint: Back Pain
Source: patient, records and previous hospital records
Exam Limitations: none
Time Seen by Provider: 01/30/24 04:59
Nursing documentation reviewed up to this point in time: agreed with
History of Present Illness
History of Present Illness:
48-year-old female chronic back pain, migraines presents with back pain seizure yesterday received Toradol Percocet and prednisone with some relief woke up today with really bad pain, she has chronic back pain followed by pain management PMNR
scheduled to see them this week, she has been weaned off of narcotics, tells me she would like something stronger than yesterday though cannot take muscle relaxants as it gave her headaches
Past History
Past History
ED Past Medical History: Hypothyroidism, Psychiatric (Bipolar disorder, Anxiety, Depression) and Other (Migrainous headaches, ovarian cysts, endometriosis); Negative Asthma, Cancer, HTN, Hypercholesterolemia or NIDDM
ED Past Surgical History: Cholecystectomy, Gynecological (Uterine ablation, Hysterectomy), Orthopedic (Bilateral knee arthroscopy, left dorsal hand nodule removal) and Tonsilectomy
Social History
Tobacco: Non-smoker
Alcohol: Occasional
Drug: None
Personal: Single
Living: alone
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
Family History
Family History: Diabetes
Review of Systems
Review of Systems
All Other Systems: Not applicable
Constitutional: Denies fever or fatigue
EENT: Reports no symptoms
Respiratory: Reports no symptoms
Cardiac: Reports no symptoms
ABD/GI: Reports no symptoms
: Reports no symptoms
Musculoskeletal: Reports back pain
Skin: Reports no symptoms
Endocrine: Reports no symptoms
Hematologic/Lymphatic: Reports no symptoms
Phy Exam
Physical Exam
Physical Exam:
Physical Exam
General: 48 female mild distress
Neck: No jaundice
Heart: s1/s2 regular rate and rhythm, no murmur. equal radial pulses.
Lungs: no acute respiratory distress. clear bilaterally
Neuro: alert and oriented. Able to lift her legs off the
Skin: no rash able
Psychiatric: well kept. interactive and cooperative
Extremities: no edema.
Course
Orders/Labs/Results
Orders:
Orders
01/30/24 05:10
HYDROmorphone [Dilaudid] 1 mg IM NOW STA
Ketorolac [Toradol] 60 mg IM NOW STA
01/30/24 05:11
Acetaminophen [Tylenol] 1,000 mg PO NOW STA
Vital Signs
Initial and Last Documented VS:
Initial Vital Signs
Temp Pulse Resp BP Pulse Ox
98.9 F 109 18 133/91 98
01/30/24 04:54 01/30/24 04:54 01/30/24 04:54 01/30/24 04:54 01/30/24 04:54
Last Documented Vital Signs
Temp Pulse Resp BP Pulse Ox
98.9 F 109 18 133/91 98
01/30/24 04:54 01/30/24 04:54 01/30/24 04:54 01/30/24 04:54 01/30/24 04:54
MDM/Problems Addressed
Differential Diagnosis Includes:
Lumbago, radiculopathy, chronic back pain acute on chronic back pain no signs of epidural abscess discitis history of his
MDM/Problems Addressed:
Back pain
Chronic conditions affecting care:
Back pain migraine
Acute Exacerbation and/or Progression of Chronic Illness:
Back pain migraine
*Pulse Oximetry
Patient hypoxic: no
*Critical Care Note
Total Time (30-74mins, 75-104mins- exclusive of procedures): Not Applicable
Update Note
Update Note:
Update, will attempt to get the patient comfortable, have her follow-up with her pain management provider as scheduled
ED Attending Note
-
Portions of this chart may have been created with voice recognition software.� Occasional wrong word or��sound alike� substitutions may have occurred due to the inherent limitations of voice recognition software.
Discharge Plan
Departure
Patient Disposition: Home (Routine Discharge)
Date of Disposition: 01/30/24
Time of Disposition: 05:18
Patient with high blood pressure during this ER visit?: No
Discharge Problem:
Back pain
Instructions: Low Back Pain (DC), Radiculopathy (DC)
Prescriptions:
No Action
duloxetine 60 MG capsule,delayed release(DR/EC)
60 mg PO DAILY
lamotrigine [Lamictal XR] 250 MG tablet extended release 24hr
250 mg PO DAILY
quetiapine [Seroquel] 100 mg Tablet
100 mg PO DAILY
selenium 200 mcg Tablet
200 mcg PO DAILY
gabapentin 800 mg Tablet
800 mg PO DAILY
levothyroxine [Synthroid] 200 mcg Tablet
200 mcg PO DAILY
topiramate [Topamax] 200 mg Tablet
200 mg PO DAILY
Vraylar 1.5 mg Capsule
1.5 mg PO DAILY
oxycodone-acetaminophen [Endocet] 5-325 mg tablet
1 tab PO Q6H PRN (Reason: pain) Qty: 15 0RF
Rx Instructions:
1-2 tabs every 6 hours prn mod-severe pain
lactulose 20 gram/30 mL solution
20 g PO BID 3 Days Qty: 180 0RF
prednisone 20 mg tablet
40 mg PO DAILY 4 Days Qty: 8 0RF
Referrals:
Jeremie Conley I., DO [Family Provider] - Next open appointment
Activity Restrictions/Additional Instructions:
Follow-up with your primary care provider and back pain specialist this week
Interventions
Interventions:
*Risk Screen - Suicide Last Done: 01/30/24 04:54
*Neglect/Abuse Screening Last Done: 01/30/24 04:54
ED- Fall Risk Assessment Last Done: 01/30/24 04:54
Discharge Date and Time
Print Language: CZECH
[2024-01-30] MEDS: TYLENOL 1000 MG PO (05:16)
[2024-01-30] MEDS: DILAUDID 1 MG IM (05:17)
[2024-01-30] MEDS: TORADOL 60 MG IM (05:17)
[2024-01-30 05:25] VITALS: BP 123/93
== END 2024-01-30 06:10 | disposition home or self-care (01) ==
LOC: EMR 04:51
PROVIDERS: EMERGENCY PHYSICIAN Emergency Medicine; FAMILY PHYSICIAN Internal Medicine
DX: G89.29 Other chronic pain (principal); M54.9 Dorsalgia, unspecified
CPT/HCPCS: 99284; 96372 ×2

== ENCOUNTER 2024-02-13 08:12 | Emergency (ER) | payer OTHER, SELFPAY ==
[2024-02-13 08:33] VITALS: BP 121/85
--- NOTE | 2024-02-13 09:34 | ED.GENMED ---
History of Present Illness
General
Chief Complaint: Back Pain
Source: patient
Exam Limitations: none
Time Seen by Provider: 02/13/24 09:23
Nursing documentation reviewed up to this point in time: agreed with
History of Present Illness
History of Present Illness:
48 yo female presents to the emergency department c/o low back radiating to both legs. She has chronic back pain, and received a trigger point injection by Dr. Escudero. She denies loss of bowel or bladder.
Past History
Past History
ED Past Medical History: Hypothyroidism, Psychiatric (Bipolar disorder, Anxiety, Depression) and Other (Migrainous headaches, ovarian cysts, endometriosis); Negative Asthma, Cancer, HTN, Hypercholesterolemia or NIDDM
ED Past Surgical History: Cholecystectomy, Gynecological (Uterine ablation, Hysterectomy), Orthopedic (Bilateral knee arthroscopy, left dorsal hand nodule removal) and Tonsilectomy
Social History
Tobacco: Non-smoker
Alcohol: Occasional
Drug: None
Personal: Single
Living: alone
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
Family History
Family History: Diabetes
Review of Systems
Review of Systems
Allergies reviewed?: Yes
All Other Systems: Not applicable
Constitutional: Reports no symptoms
EENT: Reports no symptoms
Respiratory: Reports no symptoms
Cardiac: Reports no symptoms
ABD/GI: Reports no symptoms
: Reports no symptoms
Musculoskeletal: Reports back pain
Skin: Reports no symptoms
Neurological: Reports no symptoms
Endocrine: Reports no symptoms
Hematologic/Lymphatic: Reports no symptoms
Psychiatric: Reports no symptoms
Phy Exam
Physical Exam
Physical Exam:
Physical Exam
General: no apparent distress, not acutely ill
Neck: supple. no meningeal signs.
Heart: equal radial pulses.
HEENT: Pupils equal round reactive to light, EOMI
Lungs: no acute respiratory distress. clear bilaterally
Abdomen: not tender. no CVAT
back: no stepoff, no back tenderness
Neuro: alert and oriented. no focal neurological deficits cranial nerves II through XII intact
Skin: no rash
Psychiatric: well kept. interactive and cooperative
Extremities: no edema. no calf tenderness. negative homans. good distal pulses
Course
Orders/Labs/Results
Orders:
Orders
02/13/24 09:32
Gabapentin [Neurontin] 300 mg PO NOW STA
Ketorolac [Toradol] 15 mg IM NOW STA
Prednisone [Deltasone] 50 mg PO NOW STA
02/13/24 11:05
Lidocaine [Lidocaine 4% Patch] 1 patch TOPICAL ONCE ONE
Apply Lidocaine patch(s) to:: low back
Vital Signs
Initial and Last Documented VS:
Initial Vital Signs
Temp Pulse Resp BP Pulse Ox
98.0 F 98 16 121/85 98
02/13/24 08:33 02/13/24 08:33 02/13/24 08:33 02/13/24 08:33 02/13/24 08:33
Last Documented Vital Signs
Temp Pulse Resp BP Pulse Ox
98.0 F 87 16 109/85 96
02/13/24 08:33 02/13/24 09:56 02/13/24 09:56 02/13/24 09:56 02/13/24 09:56
MDM/Problems Addressed
Differential Diagnosis Includes:
lumbar radiculopathy, cauda equina
MDM/Problems Addressed:
48-year-old female with lumbar radiculopathy. Ambulates without difficulty. Do not suspect discitis, epidural abscess or cauda equina. Stable for discharge. Follow-up with pain management.
Acute Exacerbation and/or Progression of Chronic Illness: Other (Chronic back pain)
*Pulse Oximetry
Patient hypoxic: no
*EKG
Interpreted by ED Provider?: NA
*Candy Puller Interpretation
Rate: Candy Puller- N/A
*Critical Care Note
Total Time (30-74mins, 75-104mins- exclusive of procedures): Not Applicable
Data Reviewed
Review of Other/Old Records Reveals: Radiology Studies (Prior x-rays and CT scan show L4/L5/S1 arthrosis)
Source: records
Patient Management
Social determinants of health affecting care: Living situation
Escalation/DeEscalation of care consider admission/obs:
Admit not indicated
ED Attending Note
-
Portions of this chart may have been created with voice recognition software.� Occasional wrong word or��sound alike� substitutions may have occurred due to the inherent limitations of voice recognition software.
Discharge Plan
Departure
Patient Disposition: Home (Routine Discharge)
Date of Disposition: 02/13/24
Time of Disposition: 11:05
Patient with high blood pressure during this ER visit?: No
Condition: Good
Discharge Problem:
Acute lumbar radiculopathy
Instructions: Low Back Pain (DC), Radiculopathy (DC)
Prescriptions:
No Action
duloxetine 60 MG capsule,delayed release(DR/EC)
60 mg PO DAILY
lamotrigine [Lamictal XR] 250 MG tablet extended release 24hr
250 mg PO DAILY
quetiapine [Seroquel] 100 mg Tablet
100 mg PO DAILY
selenium 200 mcg Tablet
200 mcg PO DAILY
gabapentin 800 mg Tablet
800 mg PO DAILY
levothyroxine [Synthroid] 200 mcg Tablet
200 mcg PO DAILY
topiramate [Topamax] 200 mg Tablet
200 mg PO DAILY
Vraylar 1.5 mg Capsule
1.5 mg PO DAILY
oxycodone-acetaminophen [Endocet] 5-325 mg tablet
1 tab PO Q6H PRN (Reason: pain) Qty: 15 0RF
Rx Instructions:
1-2 tabs every 6 hours prn mod-severe pain
lactulose 20 gram/30 mL solution
20 g PO BID 3 Days Qty: 180 0RF
prednisone 20 mg tablet
40 mg PO DAILY 4 Days Qty: 8 0RF
Referrals:
Jeremie Conley DO [Family Provider] - Call in 1-3 days for appt
Jv Escudero MD [Active] - Call in 1-3 days for appt
Interventions
Interventions:
*Risk Screen - Suicide Last Done: 02/13/24 09:49
*General Assessment Last Done: 02/13/24 09:49
*Neglect/Abuse Screening Last Done: 02/13/24 09:49
ED- Fall Risk Assessment Last Done: 02/13/24 09:49
*ED COVID-19 Vaccine History Last Done: 02/13/24 09:49
ED-Musculoskeletal Assessment Last Done: 02/13/24 09:49
Discharge Date and Time
Print Language: KHMER
[2024-02-13 09:49] VITALS: BMI 37.6
[2024-02-13] MEDS: DELTASONE 50 MG PO (09:51)
[2024-02-13] MEDS: NEURONTIN 300 MG PO (09:52)
[2024-02-13] MEDS: TORADOL 15 MG IM (09:52)
[2024-02-13 09:56] VITALS: BP 109/85
[2024-02-13 10:00] VITALS: BP 109/85
[2024-02-13] MEDS: LIDOCAINE 4% PATCH 1 PATCH TOPICAL (11:18)
[2024-02-13 11:25] VITALS: BP 112/82
--- NOTE | 2024-02-13 11:29 | EDRN ---
Reviewed discharge instructions with patient. Verbalized understanding. Taken to lobby in wheelchair.
== END 2024-02-13 11:25 | disposition home or self-care (01) ==
LOC: EMR 08:12
PROVIDERS: EMERGENCY PHYSICIAN Emergency Medicine; FAMILY PHYSICIAN Internal Medicine
DX: M54.16 Radiculopathy, lumbar region (principal); E03.9 Hypothyroidism, unspecified; F31.9 Bipolar disorder, unspecified; F41.9 Anxiety disorder, unspecified; E11.9 Type 2 diabetes mellitus without complications; I10 Essential (primary) hypertension; Z83.3 Family history of diabetes mellitus; Z90.49 Acquired absence of other specified parts of digestive tract; Z90.710 Acquired absence of both cervix and uterus
CPT/HCPCS: 99283; 96372

== ENCOUNTER → 2024-02-21 06:18 | Outpatient (REF) | payer OTHER, SELFPAY ==
[2024-02-21 08:17] LABS: % Basophils 0.9 % (0-2); % Eosinophils 1.2 % (0-6); % Immature Granulocytes 0.4 % (0-0.5); % Lymphocytes 34.6 % (20.5-51.1); % Monocytes 10.4 % (1.7-9.3); % Neutrophils 52.5 % (42.2-75.2); Absolute Basophils 0.1 10^3/uL (0-0.2); Absolute Eosinophils 0.1 10^3/uL (0-0.7); Absolute Monocytes 0.6 10^3/uL (0.1-0.6); Hematocrit 39.1 % (37.0-47.0); Hemoglobin 13.1 g/dL (12.0-16.0); Mean Corp Hgb Conc. 33.5 g/dL (33.0-37.0); Mean Corpuscular Hgb 30.8 pg (27.0-31.0); Mean Corpuscular Volume 91.8 fL (81.0-99.0); Mean Platelet Volume 11.3 fL (7.4-10.4); Nucleated Red Blood Cells % 0 %; Platelet Count 213 10^3/uL (130-400); Red Blood Cell Count 4.26 10^6/uL (4.20-5.40); Red Cell Dist. Width 13.1 % (11.5-14.5); White Blood Cell Count 5.7 10^3/uL (4.8-10.8)
[2024-02-21 08:53] LABS: Blood Urea Nitrogen 17 mg/dl (7-17); Calcium 9.7 mg/dl (8.4-10.2); Carbon Dioxide 19 mmol/L (22-30); Chloride 107 mmol/L (98-107); Glucose 98 mg/dl (70-99); Sodium 137 mmol/L (135-145); eGFR > 60.00
== END ==
LOC: REG 06:18
PROVIDERS: ATTENDING PHYSICIAN Orthopaedic Surgery; FAMILY PHYSICIAN Internal Medicine
DX: Z01.818 Encounter for other preprocedural examination (principal)
CPT/HCPCS: 36415; 80048; 85025

== ENCOUNTER 2024-04-07 09:53 | Outpatient (RCR) | payer OTHER, SELFPAY | END 2024-04-07 23:59 | disposition home or self-care (01) | LOC: RPT 09:53 | PROVIDERS: ATTENDING PHYSICIAN Orthopaedic Surgery; FAMILY PHYSICIAN Internal Medicine | DX: M17.12 Unilateral primary osteoarthritis, left knee (principal); Z96.653 Presence of artificial knee joint, bilateral; Z73.6 Limitation of activities due to disability; R26.9 Unspecified abnormalities of gait and mobility | CPT/HCPCS: 97010; 97110; 97140; 97162; 97530 ==

== ENCOUNTER 2024-05-09 06:24 | Outpatient (RCR) | payer OTHER, SELFPAY | END 2024-05-09 23:59 | disposition home or self-care (01) | LOC: RPT 06:24 | PROVIDERS: ATTENDING PHYSICIAN Orthopaedic Surgery; FAMILY PHYSICIAN Internal Medicine | DX: M17.12 Unilateral primary osteoarthritis, left knee (principal); Z96.653 Presence of artificial knee joint, bilateral; Z73.6 Limitation of activities due to disability; R26.9 Unspecified abnormalities of gait and mobility | CPT/HCPCS: 97010; 97110; 97116; 97530 ==

== ENCOUNTER 2024-05-11 16:37 | Emergency (ER) | payer OTHER, SELFPAY ==
[2024-05-11 16:41] VITALS: BP 147/94
[2024-05-11 18:32] VITALS: BP 132/80
[2024-05-11 19:00] VITALS: BP 129/83
--- NOTE | 2024-05-11 19:07 | ED.GENMED ---
History of Present Illness
General
Chief Complaint: Medication Reaction
Source: patient
Time Seen by Provider: 05/11/24 18:50
History of Present Illness
History of Present Illness:
49yoF with a history of bipolar disorder, depression, anxiety, hypothyroidism, and migraines presenting for evaluation of a medication reaction. Patient reports difficulty sleeping recently. She had a migraine this morning and took a dose of Reyvow
around 6am. She reports feeling generally unwell today and tried to go to bed early today around 3pm. She took her usual nighttime medications at 3pm. About an hour after taking these medications, she started to feel woozy. She fell trying to get
out of bed but denies any injuries. She states she feels groggy and confused. She also felt like her heart was racing earlier with generalized pain. She called an [employer] to take her to the ED for evaluation.
She reports being on numerous medications including Seroquel 700mg, Topamax 200mg, gabapentin 600mg + 800mg tabs, Depakote 375mg, and Xanax 2mg. She is prescribed all of these medications by her psychiatrist, Dr. San. She takes these
medications on a regular basis. She denies any recent medication adjustments. PMDP reviewed. She is also prescribed PRN Percocet. She reports being prescribed this due to a knee replacement last month. She has not taken this today. She denies any
illicit drug use or alcohol use.
Past History
Past History
ED Past Medical History: Hypothyroidism, Psychiatric (Bipolar disorder, Anxiety, Depression) and Other (Migrainous headaches, ovarian cysts, endometriosis); Negative Asthma, Cancer, HTN, Hypercholesterolemia or NIDDM
ED Past Surgical History: Cholecystectomy, Gynecological (Uterine ablation, Hysterectomy), Orthopedic (Bilateral knee arthroscopy, left dorsal hand nodule removal) and Tonsilectomy
Social History
Tobacco: Non-smoker
Alcohol: Occasional
Drug: None
Personal: Single
Living: alone
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
Family History
Family History: Diabetes
Phy Exam
Physical Exam
Physical Exam:
Patient drowsy but alert and answering questions
General Physical Exam
General Presentation: well appearing and no apparent distress
General age: appears stated age
General Skin: warm and dry
General Habitus: normal
ENT Exam
ENT Exam: normocephalic
Cardiovascular Exam
Cardiovascular Exam: regular rate/rhythm and no murmur
Pulmonary Exam
Pulmonary Exam: lungs clear, no respiratory distress, no crackles and no wheezing
Neurological Exam
Neurological Exam: alert and other (Alert. Oriented to person, place, and time. Moving all extremities equally)
Obed Coma Scale
Eye Opening: Spontaneous
Verbal Response: Oriented
Motor Response: Obeys Commands
GCS Total Score: 15
Skin Exam
Skin Exam: normal color and warm/dry
Psychiatric Exam
Psychiatric Exam: normal mood/affect
Course
Orders/Labs/Results
Orders:
Orders
05/11/24 16:45
Electrocardiogram (*1) Urgent
Reason for Study: Tachycardia
05/11/24 16:46
EKG- Treatment ONCE
05/11/24 19:09
CT Cervical Spine W/o Iv Contr Urgent
Comment:
Reason For Exam: Fall, AMS
CT Head W/o Iv Contrast Urgent
Comment:
Reason For Exam: Fall, AMS
05/11/24 19:10
Test Result ONCE
05/11/24 21:10
Comprehensive Metabolic Panel Urgent
HCG, Serum Qualitative Screen Urgent
Comment: ADD ON
05/11/24 21:11
Complete Blood Count/With Diff Urgent
Troponin I Urgent
Abnormal Lab Results
05/11/24 05/11/24
21:10 21:11
MPV 10.8 H fL
(7.4-10.4)
Absolute Monos (auto) 0.9 H 10^3/uL
(0.1-0.6)
Monocytes % 10.7 H %
(1.7-9.3)
Carbon Dioxide 18 L mmol/L
(22-30)
BUN 18 H mg/dl
(7-17)
05/11/24 21:11
05/11/24 21:10
Vital Signs
Initial and Last Documented VS:
Initial Vital Signs
Temp Pulse BP Pulse Ox
98.2 F 109 147/94 98
05/11/24 16:41 05/11/24 16:41 05/11/24 16:41 05/11/24 16:41
Last Documented Vital Signs
Temp Pulse Resp BP Pulse Ox
98.2 F 84 15 126/68 97
05/11/24 16:41 05/11/24 22:59 05/11/24 22:59 05/11/24 23:04 05/11/24 21:56
MDM/Problems Addressed
Differential Diagnosis Includes:
49yoF here with grogginess and feeling confused after taking her usual nighttime medications at 3pm today. She also had a fall getting out of bed but she denies any injuries from this. She is on multiple medications including gabapentin, Xanax,
Depakote, Topamax, Seroquel. VSS. She is drowsy on exam but answering questions appropriately. GCS is 15 and no focal neuro deficits present. Differential diagnosis includes but is not limited to: medication side effect, polypharmacy, intoxication
Initial ED plan: Check cardiac labs, HCG, EKG, and CT head/cervical spine.
*EKG
Interpreted by ED Provider?: Yes
EKG Intrepretation Date: 05/11/24
Heart Rate: 82
Rate: normal
Rhythm: sinus
[facility]: normal axis
Interval: normal interval
QRS Pattern: normal QRS
Ischemia: no ischemia
*Critical Care Note
Total Time (30-74mins, 75-104mins- exclusive of procedures): Not Applicable
Update Note
Update Note:
EKG shows NSR without ischemic changes and troponin WNL. Remainder of labs overall unremarkable. CT imaging negative for traumatic injuries. Patient monitored for several hours. She is much more awake on reassessment. She was able to eat a meal and
ambulate independently. She is stable for discharge. Discussed concern for polypharmacy with patient. She was advised to only take her medications as prescribed by her doctor. She was also encouraged to call her psychiatrist tomorrow to review her
medications. ED return precautions discussed. She was discharged in stable condition.
ED Attending Note
-
Portions of this chart may have been created with voice recognition software.� Occasional wrong word or��sound alike� substitutions may have occurred due to the inherent limitations of voice recognition software.
Discharge Plan
Departure
Patient Disposition: Home (Routine Discharge)
Date of Disposition: 05/11/24
Time of Disposition: 23:10
Patient with high blood pressure during this ER visit?: No
Discharge Problem:
Polypharmacy
Instructions: Dizziness
Prescriptions:
No Action
duloxetine 60 MG capsule,delayed release(DR/EC)
60 mg PO DAILY
Patient Comments:
05/11/2024: taken w/ 30mg = 90mg
quetiapine [Seroquel] 100 mg Tablet
100 mg PO HS
Patient Comments:
05/11/2024: taken w/ 600mg = 700mg
gabapentin 800 mg Tablet
800 mg PO TID
levothyroxine [Synthroid] 200 mcg Tablet
200 mcg PO DAILY
topiramate [Topamax] 200 mg Tablet
200 mg PO BID
Vraylar 1.5 mg Capsule
1.5 mg PO DAILYPRN PRN (Reason: migraine)
gabapentin 600 mg tablet
600 mg PO HS
Patient Comments:
05/11/2024: taken w/ 800mg = 1,400mg
quetiapine 300 mg tablet
600 mg PO HS
Patient Comments:
05/11/2024: taken w/ 100mg = 700mg
divalproex 250 mg tablet,delayed release (DR/EC)
250 mg PO HS
Patient Comments:
05/11/2024: taken w/ 125mg = 375mg
divalproex 125 mg tablet,delayed release (DR/EC)
125 mg PO HS
Patient Comments:
05/11/2024: taken w/ 250mg = 375mg
alprazolam 2 mg tablet
2 mg PO BID
Patient Comments:
05/11/2024: last filled 05/02/24, 120 tabs for 30 days from [facility]
lamotrigine 100 mg tablet
100 mg PO DAILY
duloxetine 30 mg capsule,delayed release(DR/EC)
30 mg PO DAILY
Patient Comments:
05/11/2024: taken w/ 60mg = 90mg
Reyvow 100 mg tablet
100 mg PO DAILYPRN PRN (Reason: migraine)
oxycodone-acetaminophen [Endocet] 5-325 mg tablet
1 tab PO Q8HPRN PRN (Reason: moderate to severe pain)
Patient Comments:
05/11/2024: last filled 04/21/24, 90 tabs for 30 days from [facility]
Referrals:
Jeremie Conley I., DO [Family Provider] -
Activity Restrictions/Additional Instructions:
You are on multiple medications that can cause drowsiness. Only take your medications as prescribed by your doctor.
Please call your psychiatrist tomorrow to discuss your symptoms to see if any medication adjustments need to be made.
Return to the ER with any new or worsening symptoms.
Interventions
Interventions:
*Risk Screen - Suicide Last Done: 05/11/24 16:44
*General Assessment Last Done: 05/11/24 16:44
*Neglect/Abuse Screening Last Done: 05/11/24 16:44
ED- Fall Risk Assessment Last Done: 05/11/24 23:24
*ED COVID-19 Vaccine History Last Done: 05/11/24 16:44
*Nursing Disposition Last Done: 05/11/24 23:24
ED-Skin Assessment Last Done: 05/11/24 18:29
ED- Pulmonary Assessment Last Done: 05/11/24 18:29
ED-EENT Assessment Last Done: 05/11/24 18:42
Discharge Date and Time
Discharge Date/Time: 05/11/24 23:25
Print Language: GUINEAN
[2024-05-11 21:20] LABS: % Basophils 0.6 % (0-2); % Eosinophils 0.7 % (0-6); % Immature Granulocytes 0.4 % (0-0.5); % Lymphocytes 35.1 % (20.5-51.1); % Monocytes 10.7 % (1.7-9.3); % Neutrophils 52.5 % (42.2-75.2); Absolute Basophils 0.1 10^3/uL (0-0.2); Absolute Eosinophils 0.1 10^3/uL (0-0.7); Absolute Lymphocytes 2.9 10^3/uL (1.2-3.4); Absolute Monocytes 0.9 10^3/uL (0.1-0.6); Absolute Neutrophils 4.3 10^3/uL (1.4-6.5); Hematocrit 37.9 % (37.0-47.0); Mean Corp Hgb Conc. 34.3 g/dL (33.0-37.0); Mean Corpuscular Hgb 30.1 pg (27.0-31.0); Mean Corpuscular Volume 87.7 fL (81.0-99.0); Mean Platelet Volume 10.8 fL (7.4-10.4); Nucleated Red Blood Cells % 0 %; Platelet Count 269 10^3/uL (130-400); Red Blood Cell Count 4.32 10^6/uL (4.20-5.40); Red Cell Dist. Width 13.4 % (11.5-14.5); White Blood Cell Count 8.2 10^3/uL (4.8-10.8)
[2024-05-11 21:31] LABS: HCG, Serum Qualitative Screen Negative
[2024-05-11 21:36] LABS: ALT (SGPT) 26 U/L (0-35); AST (SGOT) 29 U/L (14-36); Albumin 4.8 g/dl (3.5-5.0); Alkaline Phosphatase 75 U/L (38-126); Blood Urea Nitrogen 18 mg/dl (7-17); Calcium 9.6 mg/dl (8.4-10.2); Carbon Dioxide 18 mmol/L (22-30); Chloride 106 mmol/L (98-107); Glucose 93 mg/dl (70-99); Potassium 3.7 mmol/L (3.5-5.1); Sodium 142 mmol/L (135-145); Total Bilirubin 0.3 mg/dl (0.2-1.3); Total Protein 7.9 g/dl (6.3-8.2); eGFR > 60.00
[2024-05-11 21:45] LABS: Troponin I < 0.012 ng/ml
[2024-05-11 21:56] VITALS: BP 130/81
[2024-05-11 23:04] VITALS: BP 126/68
== END 2024-05-11 23:25 | disposition home or self-care (01) ==
LOC: EMR 16:37
PROVIDERS: EMERGENCY PHYSICIAN Emergency Medicine; FAMILY PHYSICIAN Internal Medicine
DX: T50.911A Poisoning by multiple unspecified drugs, medicaments and biological substances, accidental (unintentional), initial encounter (principal); S09.90XA Unspecified injury of head, initial encounter; W06.XXXA Fall from bed, initial encounter; F31.9 Bipolar disorder, unspecified; F41.9 Anxiety disorder, unspecified; E03.9 Hypothyroidism, unspecified
CPT/HCPCS: 99285; 70450; 72125; 80053; 84484; 84703; 85025; 93005

== ENCOUNTER 2024-08-21 01:47 | Emergency (ER) | payer OTHER, SELFPAY ==
[2024-08-21 02:05] VITALS: BP 122/83
[2024-08-21 03:29] VITALS: BMI 44.8
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
[2024-08-21] MEDS: DECADRON 10 MG PO (05:38)
[2024-08-21] MEDS: PERCOCET 5/325 1 TABLET PO (05:38)
[2024-08-21 05:59] VITALS: BP 102/72
== END 2024-08-21 06:08 | disposition home or self-care (01) ==
LOC: EMR 01:47
PROVIDERS: EMERGENCY PHYSICIAN Student in an Organized Health Care Education/Training Program; FAMILY PHYSICIAN Internal Medicine
DX: G89.29 Other chronic pain (principal); M54.50 Low back pain, unspecified
CPT/HCPCS: 99283

== ENCOUNTER 2024-10-03 04:53 | Emergency (ER) | payer OTHER, SELFPAY ==
[2024-10-03 04:54] VITALS: BP 170/102
[2024-10-03 06:20] VITALS: BMI 37.9
--- NOTE | 2024-10-03 06:34 | ED.GENMED ---
History of Present Illness
General
Chief Complaint: Headache
Source: patient
Exam Limitations: none
Time Seen by Provider: 10/03/24 06:07
Nursing documentation reviewed up to this point in time: agreed with
History of Present Illness
History of Present Illness:
49-year-old female with past medical history of chronic migraines, depression and anxiety who presents to the emergency department for evaluation of headache. Of note patient reports severe chronic migraines, occasionally getting multiple migraines
a week. She follows with neurology through [facility] and is on Topamax and gabapentin to prevent migraines with Vraylar, Toradol, Reglan, Compazine prescribed to take at home as needed for severe episodes. She says that 4 days ago she
started with one of her typical migraines with generally mild symptoms and symptoms have progressed since then. She says that her typical prescribed medications have not been helping which prompted her to come to the emergency room this morning.
She says that this is not atypical for her and occasionally she requires hospitalization, most recently in July at [place] she says for 10 days. She says that she has pressure headache 'all over' associated with some photosensitivity. She
denies any fever or chills. She has mild nausea but no vomiting. She denies any neck pain or stiffness. No change in vision or speech, focal weakness or numbness. She denies any other complaints. No recent head trauma. She denies any other
complaints.
Past History
Past History
ED Past Medical History: Hypothyroidism, Psychiatric (Bipolar disorder, Anxiety, Depression) and Other (Migrainous headaches, ovarian cysts, endometriosis); Negative Asthma, Cancer, HTN, Hypercholesterolemia or NIDDM
ED Past Surgical History: Cholecystectomy, Gynecological (Uterine ablation, Hysterectomy), Orthopedic (Bilateral knee arthroscopy, left dorsal hand nodule removal) and Tonsilectomy
Social History
Tobacco: Non-smoker
Alcohol: Occasional
Drug: None
Personal: Single
Living: alone
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
Family History
Family History: Diabetes
Review of Systems
Review of Systems
All Other Systems: ROS reviewed and negative except as documented in HPI and ROS
Constitutional: Denies fever or chills
Respiratory: Denies cough or trouble breathing
Cardiac: Denies chest pain
ABD/GI: Reports nausea; Denies abdominal pain or vomiting
: Denies flank pain
Musculoskeletal: Denies neck pain or back pain
Neurological: Reports headache; Denies dizzy, weakness or numbness
Phy Exam
Physical Exam
Physical Exam:
General: Awake, alert, oriented x3; sitting comfortably in bed in no acute distress
Head: Normocephalic, atraumatic
Eyes: Conjunctiva normal, EOMI, pupils equal round and reactive to light bilaterally
Throat: Airway intact, handling secretions
Neck: Trachea midline, supple without meningismus
Lungs: Breathing comfortably no distress, pulse ox acceptable on room air
Heart: Regular rate
Neuro: Cranial nerves intact, speech fluid without dysarthria or aphasia, no limb ataxia, motor and sensory intact in all extremities
Skin: no rash
Extremities: No edema in extremities, warm and well-perfused
Scores
Heart Failure Risk
Heart Failure Risk Score: Not Applicable
Heart Score for Chest Pain Patients
STEMI patient?: Not applicable
Withdrawal Assessment of Alcohol
Withdrawal Assessment Completed?: Not applicable
Course
Orders/Labs/Results
Orders:
Orders
10/03/24 06:29
Dexamethasone Sod Phosphate [Decadron] 10 mg IV NOW STA
Test Result ONCE
10/03/24 06:30
0.9% Sodium Chloride 1000 ml [Nss] 1,000 ml IV BOLUS
10/03/24 06:31
Magnesium Sulfate 2 Gram/50 ml [Magnesium Sulfate] 2 gram in 50 ml IV NOW
10/03/24 06:47
Complete Blood Count/With Diff Urgent
Comprehensive Metabolic Panel Urgent
HCG, Serum Qualitative Screen Urgent
10/03/24 07:13
Ketamine 33 mg 0.9% Sodium Chloride 50 ml [Nss] 50 ml IV NOW
10/03/24 08:57
Diphenhydramine [Benadryl] 25 mg IV NOW STA
Ketorolac [Toradol] 15 mg IV NOW STA
Metoclopramide [Reglan] 10 mg IV NOW STA
10/03/24 09:00
0.9% Sodium Chloride 1000 ml [Nss] 1,000 ml IV 150 mls/hr
10/03/24 09:56
Valproate Sodium [Depacon] 1,000 mg 0.9% Sodium Chloride 50 ml [Nss] 50 ml IV NOW
Abnormal Lab Results
10/03/24
06:47
RBC 4.12 L 10^6/uL
(4.20-5.40)
MCH 31.6 H pg
(27.0-31.0)
MPV 11.7 H fL
(7.4-10.4)
Abs Immat Gran (auto) 0.1 H 10^3/uL
(0-0.05)
Immature Gran % 0.8 H %
(0-0.5)
Chloride 111 H mmol/L
(98-107)
Carbon Dioxide 18 L mmol/L
(22-30)
BUN 24 H mg/dl
(7-17)
Glucose 146 H mg/dl
(70-99)
10/03/24 06:47
10/03/24 06:47
Vital Signs
Initial and Last Documented VS:
Initial Vital Signs
Temp Pulse Resp BP Pulse Ox
36.8 C 100 24 170/102 97
10/03/24 04:54 10/03/24 04:54 10/03/24 04:54 10/03/24 04:54 10/03/24 04:54
Last Documented Vital Signs
Temp Pulse Resp BP Pulse Ox
36.8 C 74 16 128/76 96
10/03/24 04:54 10/03/24 08:21 10/03/24 08:21 10/03/24 08:21 10/03/24 08:21
MDM/Problems Addressed
Differential Diagnosis Includes:
Migraine headache, tension headache, sinus headache; very low suspicion clinically for subarachnoid hemorrhage or other emergent pathology taking full clinical picture into account
MDM/Problems Addressed:
49-year-old female with long history of frequent migraines presents to the ER for one of her typical migraines refractory to normal home medications. Hypertensive otherwise acceptable vital signs�tachycardia and tachypnea in triage noted but
resolved by my assessment. Physical exam as above. She has reassuring neurologic exam and long history of similar episodes of migraine without any change in quality; she says that severity is not atypical for her and she had similar headache in
July. Usually follows at [place] and reports multiple imaging studies of the head which have not shown any significant abnormalities. Hold off on repeat head imaging at this point in time we will treat symptomatically. She says that when her
home medications fail she tends to improve with steroids and ketamine treatment. Reasonable to trial these medications here. Will add fluids and magnesium as well. Will reassess after the above.
Clinical reassessment patient did have improvement in headache after treatment as above but not resolved. Labs reviewed no clinically significant abnormalities. She is due for repeat Toradol and Reglan which we can provide here in addition to
Benadryl. Will provide a dose of Depakote as well for second line migraine treatment. Continue fluids. Reassess.
Symptoms improved with ER treatment. Patient wishes to go home said she feels much better. She will follow-up with her usual neurologist. Spoke about return precautions all questions answered.
Chronic conditions affecting care:
Chronic migraines
Acute Exacerbation and/or Progression of Chronic Illness:
Acutely hypertensive suspect secondary to headache�monitor clinically but no emergent antihypertensives for now
Acute Exacerbation and/or Progression of Chronic Illness: HTN
*Pulse Oximetry
Patient hypoxic: no
*Critical Care Note
Total Time (30-74mins, 75-104mins- exclusive of procedures): Not Applicable
Data Reviewed
Source: patient
Further Testing Considered But Not Given:
Considered CT head
ED Attending Note
-
Portions of this chart may have been created with voice recognition software.� Occasional wrong word or��sound alike� substitutions may have occurred due to the inherent limitations of voice recognition software.
Discharge Plan
Departure
Patient Disposition: Home (Routine Discharge)
Date of Disposition: 10/03/24
Time of Disposition: 10:49
Patient with high blood pressure during this ER visit?: Yes
Discharge Problem:
Migraine
Instructions: Migraines (DC)
Prescriptions:
No Action
duloxetine 60 MG capsule,delayed release(DR/EC)
60 mg PO DAILY
Patient Comments:
05/11/2024: taken w/ 30mg = 90mg
quetiapine [Seroquel] 100 mg Tablet
100 mg PO HS
Patient Comments:
05/11/2024: taken w/ 600mg = 700mg
gabapentin 800 mg Tablet
800 mg PO TID
levothyroxine [Synthroid] 200 mcg Tablet
200 mcg PO DAILY
topiramate [Topamax] 200 mg Tablet
200 mg PO BID
Vraylar 1.5 mg Capsule
1.5 mg PO DAILYPRN PRN (Reason: migraine)
gabapentin 600 mg tablet
600 mg PO HS
Patient Comments:
05/11/2024: taken w/ 800mg = 1,400mg
quetiapine 300 mg tablet
600 mg PO HS
Patient Comments:
05/11/2024: taken w/ 100mg = 700mg
divalproex 250 mg tablet,delayed release (DR/EC)
250 mg PO HS
Patient Comments:
05/11/2024: taken w/ 125mg = 375mg
divalproex 125 mg tablet,delayed release (DR/EC)
125 mg PO HS
Patient Comments:
05/11/2024: taken w/ 250mg = 375mg
alprazolam 2 mg tablet
2 mg PO BID
Patient Comments:
05/11/2024: last filled 05/02/24, 120 tabs for 30 days from [facility]
lamotrigine 100 mg tablet
100 mg PO DAILY
duloxetine 30 mg capsule,delayed release(DR/EC)
30 mg PO DAILY
Patient Comments:
05/11/2024: taken w/ 60mg = 90mg
Reyvow 100 mg tablet
100 mg PO DAILYPRN PRN (Reason: migraine)
oxycodone-acetaminophen [Endocet] 5-325 mg tablet
1 tab PO Q8HPRN PRN (Reason: moderate to severe pain)
Patient Comments:
05/11/2024: last filled 04/21/24, 90 tabs for 30 days from [facility]
prednisone 50 mg Tablet
50 mg PO DAILY Qty: 4 0RF
Referrals:
Jeremie Conley I., DO [Family Provider] -
Activity Restrictions/Additional Instructions:
Thank you for visiting the Emergency Department at [facility].
1. Please schedule a follow up appointment as directed. Call first thing tomorrow morning to make an appointment.
2. If indicated, please take your medications as instructed and indicated on discharge paperwork.
3. If any of your symptoms do not improve, or persist, or become more severe within 6-12 hours, please return to the emergency department for further care.
4. Please return to the emergency department if you develop a headache, neck pain/stiffness, fever greater than 100.4F, chest pain, shortness of breath, persistent nausea, vomiting, slurred speech, difficulty walking, numbness/tingling, weakness,
signs of infection or any other symptoms that are worrisome to you.
Please call [phone] if you have any questions.
Interventions
Interventions:
*Risk Screen - Suicide Last Done: 10/03/24 04:54
*General Assessment Last Done: 10/03/24 06:20
*Neglect/Abuse Screening Last Done: 10/03/24 04:54
*ED- Fall Risk Assessment Last Done: 10/03/24 06:20
*ED COVID-19 Vaccine History Last Done: 10/03/24 09:55
ED- Neurological Assessment Last Done: 10/03/24 08:23
Discharge Date and Time
Print Language: MALAWIAN
[2024-10-03 07:09] LABS: HCG, Serum Qualitative Screen Negative
[2024-10-03 07:18] LABS: ALT (SGPT) 16 U/L (0-35); AST (SGOT) 20 U/L (14-36); Albumin 4.6 g/dl (3.5-5.0); Alkaline Phosphatase 68 U/L (38-126); Blood Urea Nitrogen 24 mg/dl (7-17); Calcium 9.3 mg/dl (8.4-10.2); Carbon Dioxide 18 mmol/L (22-30); Chloride 111 mmol/L (98-107); Estimated Creatinine Clearance > 125 ml/min; Glucose 146 mg/dl (70-99); Potassium 4.1 mmol/L (3.5-5.1); Sodium 144 mmol/L (135-145); Total Bilirubin 0.4 mg/dl (0.2-1.3); Total Protein 7.1 g/dl (6.3-8.2); eGFR > 60.00
[2024-10-03 07:21] LABS: % Basophils 0.6 % (0-2); % Eosinophils 0.9 % (0-6); % Immature Granulocytes 0.8 % (0-0.5); % Lymphocytes 25.8 % (20.5-51.1); % Neutrophils 62.9 % (42.2-75.2); Absolute Eosinophils 0.1 10^3/uL (0-0.7); Absolute Immature Granulocytes 0.1 10^3/uL (0-0.05); Absolute Lymphocytes 1.7 10^3/uL (1.2-3.4); Absolute Monocytes 0.6 10^3/uL (0.1-0.6); Absolute Neutrophils 4.1 10^3/uL (1.4-6.5); Hematocrit 38.2 % (37.0-47.0); Mean Corpuscular Hgb 31.6 pg (27.0-31.0); Mean Corpuscular Volume 92.7 fL (81.0-99.0); Nucleated Red Blood Cells % 0 %; Red Blood Cell Count 4.12 10^6/uL (4.20-5.40); White Blood Cell Count 6.5 10^3/uL (4.8-10.8)
[2024-10-03] MEDS: NSS 1000 IV ×2 (07:40→09:44)
[2024-10-03] MEDS: DECADRON 10 MG IV (07:41)
[2024-10-03] MEDS: MAGNESIUM SULFATE 50 IV (07:44)
[2024-10-03 07:45] VITALS: BP 111/75
[2024-10-03 07:47] LABS: Mean Platelet Volume 11.7 fL (7.4-10.4); Platelet Count 189 10^3/uL (130-400)
[2024-10-03] MEDS: KETAMINE 53.3 MG IV (07:52)
[2024-10-03 08:21] VITALS: BP 128/76
[2024-10-03] MEDS: REGLAN 10 MG IV (09:44)
[2024-10-03] MEDS: BENADRYL 25 MG IV (09:44)
[2024-10-03] MEDS: TORADOL 15 MG IV (09:47)
[2024-10-03] MEDS: DEPACON 60 MG IV (10:12)
[2024-10-03 11:47] VITALS: BP 118/70
== END 2024-10-03 11:49 | disposition home or self-care (01) ==
LOC: EMR 04:53
PROVIDERS: EMERGENCY PHYSICIAN Emergency Medicine; FAMILY PHYSICIAN Internal Medicine
DX: G43.909 Migraine, unspecified, not intractable, without status migrainosus (principal); F31.9 Bipolar disorder, unspecified; F41.9 Anxiety disorder, unspecified; E03.9 Hypothyroidism, unspecified; Z83.3 Family history of diabetes mellitus; Z90.49 Acquired absence of other specified parts of digestive tract; Z90.710 Acquired absence of both cervix and uterus
CPT/HCPCS: 99283; 96365; 96367; 96375; 80053; 84703; 85025

== ENCOUNTER 2024-12-07 04:35 | Emergency (ER) | payer OTHER, SELFPAY ==
[2024-12-07] VITALS (7 sets, daily range): BP systolic 106–131; BP diastolic 70–82; BMI 39.7
[2024-12-07] MEDS: NSS 1000 IV (05:35)
[2024-12-07] MEDS: MAGNESIUM SULFATE 50 IV (05:36)
[2024-12-07] MEDS: DECADRON 10 MG IV (05:36)
--- NOTE | 2024-12-07 05:50 | ED.GENMED ---
History of Present Illness
<Dinah Hewitt DO - Last Filed: 12/07/24 06:07>
General
Chief Complaint: Headache
Source: patient and previous hospital records (Several previous ED visits for similar complaint. Unremarkable imaging, unremarkable laboratory studies. Most recent ED visit for similar complaint October 03, 2024.)
Exam Limitations: none
Time Seen by Provider: 12/07/24 04:59
Nursing documentation reviewed up to this point in time: agreed with
History of Present Illness
History of Present Illness:
This is a 49-year-old woman with history of chronic migraines, history of chronic low back pain, depression, anxiety. She follows regularly with a neurologist from [place]. She presents with persistent migraine headache, ongoing over the past 2
weeks, similar chronic headaches noted previously with multiple unremarkable imaging, unremarkable laboratory studies. Similar ED visit September of this year.
She is maintained on multiple medications including Topamax and gabapentin. She has trialed Toradol, Reglan, Compazine as well as recently completed a prednisone taper 3 days ago, thus far no relief. She is also trialed Thorazine without relief.
Previous ED visit in September patient did receive some relief with IV ketamine and magnesium. She is also requesting an IV dose of Decadron.
She has not had a fever nor chills. No nasal congestion. She admits to some nausea with intermittent dry heaves.
She admits to mild photophobia but otherwise no vision difficulty.
She denies risk of .
Upon review of PDMP. Patient chronically maintained on Percocet 5/325, 120 tablets/month. Maintained on alprazolam 2 mg, 120 tablets/month.
Past History
<DO Rommel Purcell Last Filed: 12/07/24 06:07>
Past History
ED Past Medical History: Hypothyroidism, Psychiatric (Bipolar disorder, Anxiety, Depression) and Other (Migrainous headaches, ovarian cysts, endometriosis, chronic low back pain-narcotic dependent); Negative Asthma, Cancer, HTN, Hypercholesterolemia
or NIDDM
ED Past Surgical History: Cholecystectomy, Gynecological (Uterine ablation, Hysterectomy), Orthopedic (Bilateral knee arthroscopy, left dorsal hand nodule removal) and Tonsilectomy
Social History
Tobacco: Non-smoker
Alcohol: Occasional
Drug: None
Personal: Single
Living: alone
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
Family History
Family History: Diabetes
Phy Exam
<Dinah Hewitt, DO - Last Filed: 12/07/24 06:07>
Physical Exam
Physical Exam:
GENERAL: 49-year-old woman appears her stated age, awake and alert, pleasant, appears in no acute distress.
EYE: pupils equal at 5 mm bilaterally and reactive. anicteric
NECK: Supple, nontender, no meningismus, no significant adenopathy.
ENT: posterior pharynx is clear, oral mucosa is moist. TM clear b/l, nares patent.
CARDIAC: Regular rate and rhythm. no murmur.
LUNGS: Clear breath sounds bilaterally, no acute respiratory distress, no wheezes/rales/rhonchi
ABDOMEN: Soft, nondistended, without focal tenderness
NEUROLOGICAL: Alert and oriented x3, no focal neuro deficits. Gait is steady.
SKIN: Warm and dry, normal color, skin intact. No rash.
MUSCULOSKELETAL: No C/C/E. peripheral pulses are full and equal b/l. No palpable tenderness.
PSYCH: Normal and appropriate interaction.
Course
<Dinah Hewitt DO - Last Filed: 12/07/24 06:07>
Orders/Labs/Results
Orders:
Orders
12/07/24 05:10
0.9% Sodium Chloride 1000 ml [Nss] 1,000 ml IV BOLUS
Dexamethasone Sod Phosphate [Decadron] 10 mg IV NOW STA
Magnesium Sulfate 2 Gram/50 ml [Magnesium Sulfate] 2 gram in 50 ml IV NOW
12/07/24 05:45
Ketamine 34 mg 0.9% Sodium Chloride 50 ml [Nss] 50 ml IV ONCE
Vital Signs
Initial and Last Documented VS:
Initial Vital Signs
Temp Pulse Resp BP Pulse Ox
97.4 F 95 14 131/82 99
12/07/24 04:39 12/07/24 04:39 12/07/24 04:39 12/07/24 04:39 12/07/24 04:39
Last Documented Vital Signs
Temp Pulse Resp BP Pulse Ox
98.2 F 82 18 116/77 94
12/07/24 07:40 12/07/24 07:40 12/07/24 07:40 12/07/24 07:40 12/07/24 07:40
<Jayleen Quintana MD - Last Filed: 12/07/24 09:27>
Orders/Labs/Results
Orders:
Orders
12/07/24 05:10
0.9% Sodium Chloride 1000 ml [Nss] 1,000 ml IV BOLUS
Dexamethasone Sod Phosphate [Decadron] 10 mg IV NOW STA
Magnesium Sulfate 2 Gram/50 ml [Magnesium Sulfate] 2 gram in 50 ml IV NOW
12/07/24 05:45
Ketamine 34 mg 0.9% Sodium Chloride 50 ml [Nss] 50 ml IV ONCE
Vital Signs
Initial and Last Documented VS:
Initial Vital Signs
Temp Pulse Resp BP Pulse Ox
97.4 F 95 14 131/82 99
12/07/24 04:39 12/07/24 04:39 12/07/24 04:39 12/07/24 04:39 12/07/24 04:39
Last Documented Vital Signs
Temp Pulse Resp BP Pulse Ox
98.2 F 82 18 116/77 94
12/07/24 07:40 12/07/24 07:40 12/07/24 07:40 12/07/24 07:40 12/07/24 07:40
<Dinah Hewitt DO - Last Filed: 12/07/24 06:07>
MDM/Problems Addressed
Differential Diagnosis Includes:
Patient with chronic migraine headache, presents with exacerbation of her chronic migraines.
Overall well in appearance. Appears euvolemic. Vital signs within normal limits.
Will avoid narcotics.
Will trial an IV dose of ketamine, IV Decadron and IV magnesium, IV fluids.
Could consider IV Reglan, Benadryl if above are ineffective.
I suspect we will not get this patient pain-free but goal is improvement of headache with plan for follow-up with her neurologist.
Multiple unremarkable neuroimaging in the past and overall well in appearance. No indication to repeat imaging studies and overall appears euvolemic, no indication for laboratory studies.
Chronic conditions affecting care: Neurological disorder (Chronic migraine headache) and Other (Chronic pain syndrome-narcotic dependent)
Acute Exacerbation and/or Progression of Chronic Illness: Neurological disorder (Exacerbation of migraine headache)
<Dinah Hewitt DO - Last Filed: 12/07/24 06:07>
*Pulse Oximetry
Patient hypoxic: no
*Critical Care Note
Total Time (30-74mins, 75-104mins- exclusive of procedures): Not Applicable
<Jayleen Quintana MD - Last Filed: 12/07/24 09:27>
Update Note
Update Note:
Here 9:26 AM patient notes that her headache is improved but not fully resolved. We offered to give her additional medications here but she declines and would prefer to go home. Neurologically intact. She has follow-up scheduled with her
neurologist this week.
ED Attending Note
<Dinah Hewitt DO - Last Filed: 12/07/24 06:07>
-
Portions of this chart may have been created with voice recognition software.� Occasional wrong word or��sound alike� substitutions may have occurred due to the inherent limitations of voice recognition software.
Discharge Plan
Departure
Patient Disposition: Home (Routine Discharge)
Date of Disposition: 12/07/24
Time of Disposition: 09:26
Patient with high blood pressure during this ER visit?: Yes
Condition: Good
Discharge Problem:
Exacerbation of chronic migraine
Instructions: Migraines (DC), BLOOD PRESSURE
Prescriptions:
No Action
duloxetine 60 MG capsule,delayed release(DR/EC)
60 mg PO DAILY
Patient Comments:
05/11/2024: taken w/ 30mg = 90mg
quetiapine [Seroquel] 100 mg Tablet
100 mg PO HS
Patient Comments:
05/11/2024: taken w/ 600mg = 700mg
gabapentin 800 mg Tablet
800 mg PO TID
levothyroxine [Synthroid] 200 mcg Tablet
200 mcg PO DAILY
topiramate [Topamax] 200 mg Tablet
200 mg PO BID
Vraylar 1.5 mg Capsule
1.5 mg PO DAILYPRN PRN (Reason: migraine)
gabapentin 600 mg tablet
600 mg PO HS
Patient Comments:
05/11/2024: taken w/ 800mg = 1,400mg
quetiapine 300 mg tablet
600 mg PO HS
Patient Comments:
05/11/2024: taken w/ 100mg = 700mg
divalproex 250 mg tablet,delayed release (DR/EC)
250 mg PO HS
Patient Comments:
05/11/2024: taken w/ 125mg = 375mg
divalproex 125 mg tablet,delayed release (DR/EC)
125 mg PO HS
Patient Comments:
05/11/2024: taken w/ 250mg = 375mg
alprazolam 2 mg tablet
2 mg PO BID
Patient Comments:
05/11/2024: last filled 05/02/24, 120 tabs for 30 days from [facility]
lamotrigine 100 mg tablet
100 mg PO DAILY
duloxetine 30 mg capsule,delayed release(DR/EC)
30 mg PO DAILY
Patient Comments:
05/11/2024: taken w/ 60mg = 90mg
Reyvow 100 mg tablet
100 mg PO DAILYPRN PRN (Reason: migraine)
oxycodone-acetaminophen [Endocet] 5-325 mg tablet
1 tab PO Q8HPRN PRN (Reason: moderate to severe pain)
Patient Comments:
05/11/2024: last filled 04/21/24, 90 tabs for 30 days from [facility]
prednisone 50 mg Tablet
50 mg PO DAILY Qty: 4 0RF
Referrals:
UNKNOWN - PT DOES,NOT KNOW [Family Provider]
Activity Restrictions/Additional Instructions:
Follow-up with your neurologist for further evaluation.
Interventions
Interventions:
*Risk Screen - Suicide Last Done: 12/07/24 04:39
*General Assessment Last Done: 12/07/24 05:09
*Neglect/Abuse Screening Last Done: 12/07/24 05:09
*ED- Fall Risk Assessment Last Done: 12/07/24 05:09
*ED COVID-19 Vaccine History Last Done: 12/07/24 05:09
ED- Neurological Assessment Last Done: 12/07/24 05:09
Discharge Date and Time
Print Language: HEBREW
[2024-12-07] MEDS: KETAMINE 53.4 MG IV (05:57)
--- NOTE | 2024-12-07 09:54 | EDRN ---
Reviewed discharge instructions with patient. Verbalized understanding. Ambulated with steady gait to the lobby.
== END 2024-12-07 09:55 | disposition home or self-care (01) ==
LOC: EMR 04:35
PROVIDERS: EMERGENCY PHYSICIAN Emergency Medicine
DX: G43.909 Migraine, unspecified, not intractable, without status migrainosus (principal); R11.2 Nausea with vomiting, unspecified; R03.0 Elevated blood-pressure reading, without diagnosis of hypertension; M54.50 Low back pain, unspecified; F32.A Depression, unspecified; F41.9 Anxiety disorder, unspecified; F31.9 Bipolar disorder, unspecified; G89.29 Other chronic pain; F11.20 Opioid dependence, uncomplicated; Z79.899 Other long term (current) drug therapy; Z96.652 Presence of left artificial knee joint; Z90.49 Acquired absence of other specified parts of digestive tract; Z88.5 Allergy status to narcotic agent; Z88.1 Allergy status to other antibiotic agents; Z91.040 Latex allergy status
CPT/HCPCS: 99284; 96365; 96375 ×2

== ENCOUNTER 2025-01-05 02:46 | Emergency (ER) | payer OTHER, SELFPAY ==
[2025-01-05 02:49] VITALS: BP 129/91
[2025-01-05 03:02] VITALS: BP 118/77
[2025-01-05 03:03] VITALS: BMI 37.4
[2025-01-05] MEDS: NSS 1000 IV (03:32)
[2025-01-05] MEDS: DECADRON 10 MG IV (03:32)
[2025-01-05] MEDS: MAGNESIUM SULFATE 50 IV (03:33)
[2025-01-05] MEDS: KETAMINE 53.2 MG IV (03:49)
[2025-01-05 03:50] VITALS: BP 104/68
[2025-01-05 04:00] VITALS: BP 106/63
[2025-01-05 05:00] VITALS: BP 111/67
--- NOTE | 2025-01-05 05:04 | ED.GENMED ---
History of Present Illness
General
Chief Complaint: Headache
Source: patient
Time Seen by Provider: 01/05/25 02:59
History of Present Illness
History of Present Illness:
Note:
CHIEF COMPLAINT(S)
Migraine headache not responding to usual treatments.
HISTORY OF PRESENT ILLNESS
The patient is a 49-year-old female with a history of chronic migraines, experiencing an exacerbation over the past week. She describes the current migraine as pervasive and resistant to her usual management strategies. The patient reports having up
to four to five migraines per week and has previously consulted a neurologist. Recent interventions include a Vyepti infusion on Wednesday and a new medication.. The patient also receives Botox injections periodically. Despite these treatments, there
has been no relief. She experiences typical migraine symptoms such as nausea, photophobia, phonophobia, and scotomata. She has previously received care at this facility approximately one month ago.
ADDITIONAL HISTORY OBTAINED FROM SOURCES OTHER THAN THE PATIENT
Not applicable.
EXTERNAL RECORDS REVIEWED
The patient mentioned she has records at [facility] with Dr. Hector Ocasio, and she was seen here a month ago, where ketamine, decadron, and magnesium were administered.
CHRONIC MEDICAL CONDITIONS SIGNIFICANTLY AFFECTING CARE
Chronic migraine.
SOCIAL DETERMINANTS AFFECTING HEALTH
Not applicable.
ALLERGIES
Latex, which causes severe ocular irritation.
PAST MEDICAL HISTORY
Chronic migraines.
PAST SURGICAL HISTORY
Not applicable.
FAMILY HISTORY
Not applicable.
IMMUNIZATION HISTORY
Not applicable.
SOCIAL HISTORY
Not applicable.
MEDICATIONS
Gabapentin 800 mg three times daily, Topamax 200 mg twice daily, Toradol, Compazine, Benadryl, and a new drug Guelphsa.
REVIEW OF SYSTEMS
- General: No fever.
- Neurologic: Migraine with nausea, photophobia, phonophobia, and visual changes.
- Eyes: Scotomata, sensitivity to light.
- Gastrointestinal: Nausea.
PHYSICAL EXAM
- General: The patient is awake, alert, and oriented, not in apparent distress.
- Neurological: Cranial nerves intact. No focal motor deficits, no pronator drift noted. Pupils are equal, round, and reactive to light. Normal coordination and muscle tone.
- Respiratory: Lungs clear on auscultation.
- Cardiovascular: Heart with regular rate and rhythm, no murmurs.
- Skin: Warm, well-perfused, no rash.
- Neck: Normal range of motion, no meningeal signs, no jugular venous distension.
PROBLEM LIST
Acute
- Migraine headache refractory to typical treatment
Chronic
- Chronic migraines
PLAN
The patient may receive intravenous administration of medication such as Reglan and Benadryl or Compazine and Benadryl along with intravenous fluids, considering the recent administration of oral medications.
DIFFERENTIAL DIAGNOSIS
The Differential Diagnosis includes, in no particular order and is not limited to:
1. Migraine
2. Tension-Type Headache
3. Medication Overuse Headache
4. Sinus Headache
5. Cluster Headache
6. Cervicogenic Headache
7. Subarachnoid Hemorrhage
8. Temporal Arteritis
9. Pseudotumor Cerebri
10. Brain Tumor
CARE-UPDATE
01/05/25 - 03:25
Patient previously responded to ketamine, magnesium, and decadron; will proceed with another trial of these treatments. Aim to stabilize and discharge for outpatient follow-up and management. No current need for imaging reassessment.
Disposition:
SUMMARY OF ENCOUNTER
The patient, a 49-year-old female with a history of chronic migraines, presented to the emergency department due to a migraine headache not responding to usual treatments. She reported experiencing this particular migraine for the past week,
describing it as pervasive and resistant to management, despite having received a Vyepti infusion, Guelphsa, and periodic Botox injections. In the emergency department, medications were administered intravenously, which included Reglan and Benadryl
or Compazine and Benadryl along with intravenous fluids, resulting in symptomatic improvement. A normal neurologic assessment was noted during reassessment, and there was no clinical evidence to suggest meningitis or hemorrhage; therefore, imaging
was deemed unnecessary at this time.
DISPOSITION
The patient was cleared for outpatient management and will follow up with her neurologist for further outpatient headache management.
ASSESSMENT
The patients current migraine is consistent with her chronic history of migraines and is refractory to her typical treatment regimen.
EMERGENCY TREATMENTS ADMINISTERED
Intravenous administration of medications such as Reglan combined with Benadryl or Compazine and Benadryl, along with intravenous fluids, was used in management.
REASSESSMENT
The patient reported significant improvement in symptoms after treatment and was neurologically normal upon reassessment.
PLAN
Discharge planning included continuation of outpatient headache management with the patient�s neurologist; no further imaging required given the clinical presentation.
MEDICATION RECONCILIATION
Medications administered included Reglan and Benadryl or Compazine and Benadryl, intravenously.
MEDICAL DECISION MAKING
1. Number & Complexity of Problems: Chronic conditions affecting care include the patients history of chronic migraines. Differential diagnoses considered were migraine, tension-type headache, medication overuse headache, etc.
2. Data Reviewed: Normal neurologic assessment supporting decision not to perform imaging or additional testing.
3. Risk: Consideration of imaging was dismissed due to a lack of concerning clinical signs and normal neurologic exam, enabling safe discharge with outpatient follow-up.
PATHOLOGIES TO CONSIDER
Subarachnoid hemorrhage was considered but ruled out due to the absence of significant neurological findings or clinical evidence, eliminating the immediate need for imaging.
Past History
Past History
ED Past Medical History: Hypothyroidism, Psychiatric (Bipolar disorder, Anxiety, Depression) and Other (Migrainous headaches, ovarian cysts, endometriosis, chronic low back pain-narcotic dependent); Negative Asthma, Cancer, HTN, Hypercholesterolemia
or NIDDM
ED Past Surgical History: Cholecystectomy, Gynecological (Uterine ablation, Hysterectomy), Orthopedic (Bilateral knee arthroscopy, left dorsal hand nodule removal) and Tonsilectomy
Social History
Tobacco: Non-smoker
Alcohol: Occasional
Drug: None
Personal: Single
Living: alone
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
Family History
Family History: Diabetes
Phy Exam
Physical Exam
Physical Exam:
.
Course
Orders/Labs/Results
Orders:
Orders
01/05/25 03:23
Dexamethasone Sod Phosphate [Decadron] 10 mg IV NOW STA
Magnesium Sulfate 2 Gram/50 ml [Magnesium Sulfate] 2 gram in 50 ml IV NOW
01/05/25 03:24
0.9% Sodium Chloride 1000 ml [Nss] 1,000 ml IV BOLUS
01/05/25 03:28
Ketamine 32 mg 0.9% Sodium Chloride 50 ml [Nss] 50 ml IV NOW
Vital Signs
Initial and Last Documented VS:
Initial Vital Signs
Temp Pulse Resp BP Pulse Ox
97.7 F 94 16 129/91 97
01/05/25 02:49 01/05/25 02:49 01/05/25 02:49 01/05/25 02:49 01/05/25 02:49
Last Documented Vital Signs
Temp Pulse Resp BP Pulse Ox
97.7 F 78 16 111/67 92
01/05/25 02:49 01/05/25 03:49 01/05/25 03:49 01/05/25 05:00 01/05/25 05:15
*Pulse Oximetry
SaO2: 91
Oxygen Mode of Delivery: Room air
Patient hypoxic: no
*Critical Care Note
Total Time (30-74mins, 75-104mins- exclusive of procedures): Not Applicable
ED Attending Note
-
Portions of this chart may have been created with voice recognition software.� Occasional wrong word or��sound alike� substitutions may have occurred due to the inherent limitations of voice recognition software.
Discharge Plan
Departure
Patient Disposition: Home (Routine Discharge)
Date of Disposition: 01/05/25
Time of Disposition: 05:09
Patient with high blood pressure during this ER visit?: No
Discharge Problem:
Headache, migraine
Instructions: Migraines (DC)
Prescriptions:
No Action
duloxetine 60 MG capsule,delayed release(DR/EC)
60 mg PO DAILY
Patient Comments:
05/11/2024: taken w/ 30mg = 90mg
quetiapine [Seroquel] 100 mg Tablet
100 mg PO HS
Patient Comments:
05/11/2024: taken w/ 600mg = 700mg
gabapentin 800 mg Tablet
800 mg PO TID
levothyroxine [Synthroid] 200 mcg Tablet
200 mcg PO DAILY
topiramate [Topamax] 200 mg Tablet
200 mg PO BID
Vraylar 1.5 mg Capsule
1.5 mg PO DAILYPRN PRN (Reason: migraine)
gabapentin 600 mg tablet
600 mg PO HS
Patient Comments:
05/11/2024: taken w/ 800mg = 1,400mg
quetiapine 300 mg tablet
600 mg PO HS
Patient Comments:
05/11/2024: taken w/ 100mg = 700mg
divalproex 250 mg tablet,delayed release (DR/EC)
250 mg PO HS
Patient Comments:
05/11/2024: taken w/ 125mg = 375mg
divalproex 125 mg tablet,delayed release (DR/EC)
125 mg PO HS
Patient Comments:
05/11/2024: taken w/ 250mg = 375mg
alprazolam 2 mg tablet
2 mg PO BID
Patient Comments:
05/11/2024: last filled 05/02/24, 120 tabs for 30 days from [facility]
lamotrigine 100 mg tablet
100 mg PO DAILY
duloxetine 30 mg capsule,delayed release(DR/EC)
30 mg PO DAILY
Patient Comments:
05/11/2024: taken w/ 60mg = 90mg
Reyvow 100 mg tablet
100 mg PO DAILYPRN PRN (Reason: migraine)
oxycodone-acetaminophen [Endocet] 5-325 mg tablet
1 tab PO Q8HPRN PRN (Reason: moderate to severe pain)
Patient Comments:
05/11/2024: last filled 04/21/24, 90 tabs for 30 days from [facility]
prednisone 50 mg Tablet
50 mg PO DAILY Qty: 4 0RF
Referrals:
Jeremie Conley I., DO [Family Provider, Internal Medicine]
Activity Restrictions/Additional Instructions:
Please see your doctor in follow-up as discussed. Return immediately for fevers, worsening pain, numbness, tingling, motor weakness of any kind or any other concerns.
Interventions
Interventions:
*Risk Screen - Suicide Last Done: 01/05/25 02:49
*General Assessment Last Done: 01/05/25 03:03
*Neglect/Abuse Screening Last Done: 01/05/25 03:03
*ED- Fall Risk Assessment Last Done: 01/05/25 03:03
*ED COVID-19 Vaccine History Last Done: 01/05/25 03:03
*Nursing Disposition Last Done: 01/05/25 05:24
ED- Neurological Assessment Last Done: 01/05/25 03:03
Discharge Date and Time
Discharge Date/Time: 01/05/25 05:24
Print Language: MEXICAN
== END 2025-01-05 05:24 | disposition home or self-care (01) ==
LOC: EMR 02:46
PROVIDERS: EMERGENCY PHYSICIAN Emergency Medicine; FAMILY PHYSICIAN Internal Medicine
DX: G43.909 Migraine, unspecified, not intractable, without status migrainosus (principal); E03.9 Hypothyroidism, unspecified; F31.9 Bipolar disorder, unspecified; F41.9 Anxiety disorder, unspecified; E11.9 Type 2 diabetes mellitus without complications; I10 Essential (primary) hypertension; Z79.1 Long term (current) use of non-steroidal anti-inflammatories (NSAID); Z79.899 Other long term (current) drug therapy; Z83.3 Family history of diabetes mellitus; Z90.49 Acquired absence of other specified parts of digestive tract; Z90.710 Acquired absence of both cervix and uterus
CPT/HCPCS: 99282; 96374; 96375; 96361

== ENCOUNTER 2025-02-09 19:35 | Emergency (ER) | payer OTHER, SELFPAY ==
[2025-02-09 19:36] VITALS: BP 132/74
[2025-02-09 22:37] VITALS: BMI 36.8
[2025-02-09 22:39] VITALS: BP 100/66
--- NOTE | 2025-02-09 23:07 | ED.GENMED ---
History of Present Illness
General
Chief Complaint: Headache
Source: patient
Time Seen by Provider: 02/09/25 22:58
History of Present Illness
History of Present Illness:
49-year-old female presents to the emergency room complaining of a headache. Patient has chronic migraines. She takes a variety medications at home including gabapentin, Topamax, Toradol, Compazine, Benadryl and Gulphsa. Also receives
intermittent Botox injections. This particular migraine started 4 days ago. It feels just like her migraine headaches. No relief with her medication regimen. No focal weakness numbness or tingling though she does have photophobia, phonophobia
and nausea.
Past History
Past History
ED Past Medical History: Hypothyroidism, Psychiatric (Bipolar disorder, Anxiety, Depression) and Other (Migrainous headaches, ovarian cysts, endometriosis, chronic low back pain-narcotic dependent); Negative Asthma, Cancer, HTN, Hypercholesterolemia
or NIDDM
ED Past Surgical History: Cholecystectomy, Gynecological (Uterine ablation, Hysterectomy), Orthopedic (Bilateral knee arthroscopy, left dorsal hand nodule removal) and Tonsilectomy
Social History
Tobacco: Non-smoker
Alcohol: Occasional
Drug: None
Personal: Single
Living: alone
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
Family History
Family History: Diabetes
Phy Exam
Physical Exam
Physical Exam:
General: Awake, Alert, Oriented X3. No acute distress.
Vitals: unremarkable
Head: Atraumatic
Eyes: Pupils equal, EOMI
Throat: Airway intact, no exudates
Neck: Trachea midline
Lungs: Clear and equal b/l
Heart: Regular rate, no murmurs
Abd: Soft, Nontender, No pulsatile mass
Neuro: Nonfocal
Skin: Warm, dry, no rash
Extremities: pulses equal b/l, no edema
Course
Orders/Labs/Results
Orders:
Orders
02/09/25 23:06
Electrocardiogram (*1) Urgent
Reason for Study: QTc Monitoring
EKG- Treatment ONCE
0.9% Sodium Chloride 500 ml [Nss] 500 ml IV BOLUS
Diphenhydramine [Benadryl] 25 mg IV NOW STA
Metoclopramide [Reglan] 10 mg IV NOW STA
02/10/25 01:51
Prednisone [Deltasone] 50 mg PO NOW STA
Vital Signs
Initial and Last Documented VS:
Initial Vital Signs
Temp Pulse Resp BP Pulse Ox
97.8 F 81 20 132/74 97
02/09/25 19:36 02/09/25 19:36 02/09/25 19:36 02/09/25 19:36 02/09/25 19:36
Last Documented Vital Signs
Temp Pulse Resp BP Pulse Ox
97.9 F 78 20 103/62 98
02/10/25 02:15 02/10/25 02:15 02/10/25 02:15 02/10/25 02:15 02/10/25 02:15
MDM/Problems Addressed
Differential Diagnosis Includes:
Exacerbation migraine headaches, tension headache
MDM/Problems Addressed:
Patient had relief with treatment here in the emergency room. Will discharge her with a short course of steroids to help prevent rebound headache. Follow-up with neuro.
Chronic conditions affecting care: Other (Migraine headaches)
*Pulse Oximetry
SaO2: 96
Oxygen Mode of Delivery: Room air
Patient hypoxic: no
*Critical Care Note
Total Time (30-74mins, 75-104mins- exclusive of procedures): Not Applicable
ED Attending Note
-
Portions of this chart may have been created with voice recognition software.� Occasional wrong word or��sound alike� substitutions may have occurred due to the inherent limitations of voice recognition software.
Discharge Plan
Departure
Patient Disposition: Home (Routine Discharge)
Date of Disposition: 02/10/25
Time of Disposition: 01:51
Patient with high blood pressure during this ER visit?: No
Condition: Good
Discharge Problem:
Migraine
Instructions: Migraines (DC)
Prescriptions:
New
prednisone 20 mg tablet
40 mg PO DAILY Qty: 6 0RF
No Action
duloxetine 60 MG capsule,delayed release(DR/EC)
60 mg PO DAILY
Patient Comments:
05/11/2024: taken w/ 30mg = 90mg
quetiapine [Seroquel] 100 mg Tablet
100 mg PO HS
Patient Comments:
05/11/2024: taken w/ 600mg = 700mg
gabapentin 800 mg Tablet
800 mg PO TID
levothyroxine [Synthroid] 200 mcg Tablet
200 mcg PO DAILY
topiramate [Topamax] 200 mg Tablet
200 mg PO BID
Vraylar 1.5 mg Capsule
1.5 mg PO DAILYPRN PRN (Reason: migraine)
gabapentin 600 mg tablet
600 mg PO HS
Patient Comments:
05/11/2024: taken w/ 800mg = 1,400mg
quetiapine 300 mg tablet
600 mg PO HS
Patient Comments:
05/11/2024: taken w/ 100mg = 700mg
divalproex 250 mg tablet,delayed release (DR/EC)
250 mg PO HS
Patient Comments:
05/11/2024: taken w/ 125mg = 375mg
divalproex 125 mg tablet,delayed release (DR/EC)
125 mg PO HS
Patient Comments:
05/11/2024: taken w/ 250mg = 375mg
alprazolam 2 mg tablet
2 mg PO BID
Patient Comments:
05/11/2024: last filled 05/02/24, 120 tabs for 30 days from [facility]
lamotrigine 100 mg tablet
100 mg PO DAILY
duloxetine 30 mg capsule,delayed release(DR/EC)
30 mg PO DAILY
Patient Comments:
05/11/2024: taken w/ 60mg = 90mg
Reyvow 100 mg tablet
100 mg PO DAILYPRN PRN (Reason: migraine)
oxycodone-acetaminophen [Endocet] 5-325 mg tablet
1 tab PO Q8HPRN PRN (Reason: moderate to severe pain)
Patient Comments:
05/11/2024: last filled 04/21/24, 90 tabs for 30 days from [facility]
prednisone 50 mg Tablet
50 mg PO DAILY Qty: 4 0RF
Referrals:
Jeremie Conley I., DO [Family Provider, Internal Medicine]
Interventions
Interventions:
*Risk Screen - Suicide Last Done: 02/09/25 19:36
*General Assessment Last Done: 02/09/25 19:36
*Neglect/Abuse Screening Last Done: 02/09/25 19:36
*ED- Fall Risk Assessment Last Done: 02/09/25 22:40
*ED COVID-19 Vaccine History Last Done: 02/09/25 22:40
*Nursing Disposition Last Done: 02/10/25 02:21
ED- Neurological Assessment Last Done: 02/09/25 22:40
Discharge Date and Time
Discharge Date/Time: 02/10/25 02:22
Print Language: ROMANIAN
[2025-02-10] MEDS: BENADRYL 25 MG IV (00:04)
[2025-02-10] MEDS: REGLAN 10 MG IV (00:04)
[2025-02-10] MEDS: NSS 500 IV (00:05)
[2025-02-10] MEDS: DELTASONE 50 MG PO (02:13)
[2025-02-10 02:15] VITALS: BP 103/62
== END 2025-02-10 02:22 | disposition home or self-care (01) ==
LOC: EMR 19:35
PROVIDERS: EMERGENCY PHYSICIAN Emergency Medicine; FAMILY PHYSICIAN Internal Medicine
DX: G43.909 Migraine, unspecified, not intractable, without status migrainosus (principal); E03.9 Hypothyroidism, unspecified; Z90.49 Acquired absence of other specified parts of digestive tract; Z90.710 Acquired absence of both cervix and uterus
CPT/HCPCS: 96374; 96375; 99284; 93005

== ENCOUNTER 2025-02-25 00:38 | Emergency (ER) | payer OTHER, SELFPAY ==
[2025-02-25 00:41] VITALS: BP 117/77
[2025-02-25 01:12] LABS: Hematocrit 40.8 % (37.0-47.0); Hemoglobin 13.9 g/dL (12.0-16.0); Mean Corp Hgb Conc. 34.1 g/dL (33.0-37.0); Mean Corpuscular Volume 91.9 fL (81.0-99.0); Nucleated Red Blood Cells % 0 %; Platelet Count 283 10^3/uL (130-400); Red Cell Dist. Width 13.6 % (11.5-14.5)
[2025-02-25 01:28] LABS: ALT (SGPT) 65 U/L (0-35); AST (SGOT) 42 U/L (14-36); Albumin 4.8 g/dl (3.5-5.0); Alkaline Phosphatase 144 U/L (38-126); Blood Urea Nitrogen 16 mg/dl (7-17); Calcium 9.5 mg/dl (8.4-10.2); Carbon Dioxide 20 mmol/L (22-30); Chloride 112 mmol/L (98-107); Glucose 104 mg/dl (70-99); Potassium 4.5 mmol/L (3.5-5.1); Sodium 143 mmol/L (135-145); Total Protein 7.7 g/dl (6.3-8.2); eGFR > 60.00
[2025-02-25 03:09] VITALS: BMI 34.6
--- NOTE | 2025-02-25 03:17 | EDRN ---
Pt had hand surgery by Dr Taveras almost 2 weeks ago and says she got a post op infection on both hands, worse on the R hand. Pt was seen in the office, got wound care instructions. Pt called 2 days later and said it was seeping an oozing with pus
sacs so pt was put on keflex 2000mg daily and started this last Wednesday. Pt told if it does not clear up she will have to go to the ED for evaluation. Pt does not thinks her R hand is getting better and says she thinks the L one is better. Pt has
to soak her hands in peroxide daily and says it wang and the pain in her hands is 8/10. Pt unable to make a fist says she cannot drive a car because she cannot parachute mender the steering wheel. Pt tried driving on Wednesday to run errands and says the pain
was much worse when she got home. Pt has been applying bacitracin ointment and feels her wounds do not 'look healthy.' Next post op appointment is Wednesday. NO fever/chills/cough. Pt has upset stomach from keflex. Pt adds she has not been
feeling well and has been dizzy, unknown if from infection or keflex.
[2025-02-25 03:23] VITALS: BP 93/61
--- NOTE | 2025-02-25 05:21 | EDRN ---
Pt called and said she does not want to wait to be seen by a doctor any longer. Pt given declination of medical care form to sign. Pt instructed to return at any time if she changes her mind.
== END 2025-02-25 05:23 ==
LOC: EMR 00:38
PROVIDERS: Emergency Medicine
DX: Z53.21 Procedure and treatment not carried out due to patient leaving prior to being seen by health care provider (principal)
CPT/HCPCS: 80053; 83605; 85025

== ENCOUNTER 2025-03-04 22:10 | Emergency (ER) | payer OTHER, SELFPAY ==
[2025-03-04 22:12] VITALS: BP 102/72
[2025-03-05 00:44] LABS: Urine Character Slightly Cloudy (Clear)
[2025-03-05 01:54] LABS: Hematocrit 39.0 % (37.0-47.0); Hemoglobin 13.0 g/dL (12.0-16.0); Mean Corp Hgb Conc. 33.3 g/dL (33.0-37.0); Mean Corpuscular Volume 92.6 fL (81.0-99.0); Nucleated Red Blood Cells % 0 %; Platelet Count 232 10^3/uL (130-400); Red Cell Dist. Width 12.9 % (11.5-14.5)
[2025-03-05 02:11] LABS: ALT (SGPT) 25 U/L (0-35); AST (SGOT) 21 U/L (14-36); Albumin 4.5 g/dl (3.5-5.0); Alkaline Phosphatase 91 U/L (38-126); Blood Urea Nitrogen 14 mg/dl (7-17); Calcium 9.5 mg/dl (8.4-10.2); Carbon Dioxide 24 mmol/L (22-30); Chloride 110 mmol/L (98-107); Glucose 84 mg/dl (70-99); Potassium 4.0 mmol/L (3.5-5.1); Sodium 141 mmol/L (135-145); Total Protein 7.3 g/dl (6.3-8.2); eGFR > 60.00
[2025-03-05 02:41] LABS: HCG, Urine Qualitative Screen Negative
[2025-03-05] MEDS: DIFLUCAN 150 MG PO (02:55)
[2025-03-05] MEDS: FLAGYL 2000 MG PO (02:55)
--- NOTE | 2025-03-05 04:37 | ED.GENMED ---
History of Present Illness
General
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
Source: patient
Exam Limitations: none
Time Seen by Provider: 03/05/25 01:25
Nursing documentation reviewed up to this point in time: agreed with
History of Present Illness
History of Present Illness:
Note:
CHIEF COMPLAINT(S)
Persistent vaginal discomfort and discharge, possibly a yeast infection.
HISTORY OF PRESENT ILLNESS
The patient is a 49-year-old female with a [facility] history of rheumatoid arthritis, melanoma, who presents with symptoms suggestive of a yeast infection. The patient underwent double hand surgery for rheumatoid nodules on February 12 and was prescribed
antibiotics for 10 days, contributing to her current symptoms. The patients symptoms include severe burning pain with urination, and persistent white discharge despite treatment. She received a dose of Diflucan on the previous Wednesday but reports
that her insurance will not cover another dose until February 26. She feels like her symptoms started to somewhat improved however than she was started on a different antibiotic and things got worse again. The discomfort is significant, with the
patient stating, 'It hurts so bad to use the bathroom.' She denies acute urinary retention. The patient reports no history of fever and she denies any chance of sexually transmitted infections. She follows with Marleny SALAZAR. The patient
experienced similar symptoms in the past. There is no immediate concern for STIs. The patient is not on antibiotics currently and will return for a wound check with her orthopedist shortly. Additional history reveals prior treatment for bacterial
vaginosis. The current symptoms appear different than episodes of BV.
PAST MEDICAL AND SURGICAL HISTORY
- Rheumatoid arthritis.
- Double hand surgery for rheumatoid nodules on February 12.
CHRONIC MEDICAL CONDITIONS SIGNIFICANTLY AFFECTING CARE
- Rheumatoid arthritis.
PHYSICAL EXAM
General: Alert, no acute distress.
Skin: Warm, dry.
Head: Normocephalic, atraumatic.
Neck: Supple, trachea midline.
Eye, Ear, Nose, Mouth and Throat: Oral mucosa moist.
Cardiovascular: Normal peripheral perfusion, No edema.
Respiratory: Respirations are non-labored.
Gastrointestinal: Abdomen nondistended and non-tender to palpation
Genitourinary-
Pelvic: External genitalia normal appearing without lesions, ulcerations, or adenopathy. Vaginal vault without lesions, ulcerations, or signs of bleeding. Thick white present in vagina. Cervix appears normal to inspection without bleeding or
lesions. No cervical motion tenderness noted. Swabs taken of discharge.
Neurological: Alert and oriented to person, place, time, and situation, No focal neurological deficit observed.
Psychiatric: Cooperative, appropriate mood & affect.
PLAN
- Administer a second dose of Diflucan (Fluconazole) today.
- Treat for possible bacterial vaginosis with metronidazole, considering her history with one time 2g load.
- Send swabs for culture to identify any underlying bacterial infection.
- Give Azo to see if could help with dysuria
- Follow-up with evaluations and adjustments based on swab results.
DIFFERENTIAL DIAGNOSIS
The Differential Diagnosis includes, in no particular order and is not limited to:
- Vaginal candidiasis
- Bacterial vaginosis
- Urinary tract infection
- Contact dermatitis
- Cervicitis
- Vulvovaginitis
- Atrophic vaginitis
- Trichomoniasis
- Herpes simplex virus infection
- Pelvic inflammatory disease
CHART REVIEW
Reviewed ER physician documentation from 02/09/2025 patient seen for migraine headache
Reviewed ER physician documentation from 05/11/2024 patient seen for polypharmacy
MDM/DISPOSITION
The patient is a 49-year-old female with a [facility] history of rheumatoid arthritis, melanoma, who presents with symptoms suggestive of a yeast infection. The patient underwent double hand surgery for rheumatoid nodules on February 12 and was prescribed
antibiotics for 10 days, contributing to her current symptoms. She had a one time dose of diflucan and has been doing metronidazole without relief. On exam, she is well-appearing, no acute distress, afebrile. She has thick white discharge in the
vaginal vault with no lesions, no cervical motion tenderness. Swabs sent off. Will give second dose of Diflucan as well as treat for BV as patient has had this in the past. Urinalysis today shows no signs of UTI. Blood work unremarkable.
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 Patient stable for discharge.
Past History
Past History
ED Past Medical History: Hypothyroidism, Psychiatric (Bipolar disorder, Anxiety, Depression) and Other (Migrainous headaches, ovarian cysts, endometriosis, chronic low back pain-narcotic dependent); Negative Asthma, Cancer, HTN, Hypercholesterolemia
or NIDDM
ED Past Surgical History: Cholecystectomy, Gynecological (Uterine ablation, Hysterectomy), Orthopedic (Bilateral knee arthroscopy, left dorsal hand nodule removal) and Tonsilectomy
Social History
Tobacco: Non-smoker
Alcohol: Occasional
Drug: None
Personal: Single
Living: alone
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
Family History
Family History: Diabetes
Review of Systems
Review of Systems
All Other Systems: ROS reviewed and negative except as documented in HPI and ROS
Phy Exam
Physical Exam
Physical Exam:
see hpi
Course
Orders/Labs/Results
Orders:
Orders
03/04/25 22:18
Complete Blood Count/With Diff Urgent
Comprehensive Metabolic Panel Urgent
Urinalysis Reflex To Culture Urgent
Date Specimen was Collected: 03/04/25
Time Specimen was Collected: 22:18
03/05/25 01:47
HCG, Urine Qualitative Screen Urgent
Date Specimen was Collected: 03/04/25
Time Specimen was Collected: 22:18
Comment: ADDED
Chlamydia/GC by PCR Urgent
MARTHA Source: U
Specimen Description:
Source:: URINE
Date Specimen was Collected: 03/04/25
Time Specimen was Collected: 22:18
Comment: ADDED
03/05/25 02:16
Fluconazole [Diflucan] 150 mg PO NOW STA
03/05/25 02:17
MetroNIDAZOLE [Flagyl] 2,000 mg PO NOW STA
03/05/25 02:23
Add On- LAB Urgent
Tests Added?: urine hcg
Phenazopyridine HCl [Pyridium] 100 mg PO NOW STA
03/05/25 02:24
Add On- LAB Urgent
Tests Added?: urine gc/chlamydia
03/05/25 02:50
Genital Culture Urgent
MARTHA Source: Vagina
Specimen Description:
Date Specimen was Collected: 03/05/25
Time Specimen was Collected: 02:46
Trichomonas - Wet Prep Urgent
MARTHA Source: Vagina
Specimen Description:
Date Specimen was Collected: 03/05/25
Time Specimen was Collected: 02:46
Abnormal Lab Results
03/05/25
01:47
MPV 11.0 H fL
(7.4-10.4)
Chloride 110 H mmol/L
(98-107)
03/05/25 01:47
03/05/25 01:47
Vital Signs
Initial and Last Documented VS:
Initial Vital Signs
Temp Pulse Resp BP Pulse Ox
97.8 F 80 18 102/72 97
03/04/25 22:12 03/04/25 22:12 03/04/25 22:12 03/04/25 22:12 03/04/25 22:12
Last Documented Vital Signs
Temp Pulse Resp BP Pulse Ox
97.8 F 80 18 102/72 98
03/04/25 22:12 03/04/25 22:12 03/04/25 22:12 03/04/25 22:12 03/05/25 04:37
*Pulse Oximetry
SaO2: 98
Oxygen Mode of Delivery: Room air
Patient hypoxic: no
*Critical Care Note
Total Time (30-74mins, 75-104mins- exclusive of procedures): Not Applicable
ED Attending Note
-
Portions of this chart may have been created with voice recognition software.� Occasional wrong word or��sound alike� substitutions may have occurred due to the inherent limitations of voice recognition software.
Discharge Plan
Departure
Patient Disposition: Home (Routine Discharge)
Date of Disposition: 03/05/25
Time of Disposition: 03:27
Patient with high blood pressure during this ER visit?: No
Condition: Good
Discharge Problem:
Vaginal discharge, Dysuria
Instructions: Dysuria, Adult (DC), Yeast Infection (DC)
Prescriptions:
No Action
duloxetine 60 MG capsule,delayed release(DR/EC)
60 mg PO DAILY
quetiapine [Seroquel] 100 mg Tablet
100 mg PO HS
Patient Comments:
02/25/2025: taken w/ 600mg = 700mg
gabapentin 800 mg Tablet
800 mg PO TID
levothyroxine [Synthroid] 200 mcg Tablet
200 mcg PO DAILY
topiramate [Topamax] 200 mg Tablet
200 mg PO BID
Vraylar 1.5 mg Capsule
1.5 mg PO DAILY
gabapentin 600 mg tablet
600 mg PO HS
Patient Comments:
02/25/2025: taken w/ 800mg = 1,400mg
quetiapine 300 mg tablet
600 mg PO HS
Patient Comments:
05/11/2024: taken w/ 100mg = 700mg
divalproex 250 mg tablet,delayed release (DR/EC)
250 mg PO HS
Patient Comments:
02/25/2025: taken w/ 125mg = 375mg
divalproex 125 mg tablet,delayed release (DR/EC)
125 mg PO HS
Patient Comments:
02/25/2025: taken w/ 250mg = 375mg
alprazolam 2 mg tablet
2 mg PO BID
lamotrigine 100 mg tablet
100 mg PO DAILY
Reyvow 100 mg tablet
100 mg PO DAILYPRN PRN (Reason: migraine)
oxycodone-acetaminophen [Endocet] 5-325 mg tablet
1 tab PO Q8HPRN PRN (Reason: moderate to severe pain)
Patient Comments:
05/11/2024: last filled 04/21/24, 90 tabs for 30 days from [facility]
Compounded Weight Loss Med
7.5 mg SC WEEKLY
Patient Comments:
pt says it is compounded and not on the market
cephalexin [Keflex] 500 mg Capsule
500 mg PO QID
Referrals:
Jeremie Conley I., [Family Provider, Internal Medicine]
Activity Restrictions/Additional Instructions:
You were given second dose of Diflucan as well as treated empirically for bacterial vaginosis.
As discussed, your urinalysis does not show any signs of infection.
Please follow-up with your orthopedist in regards to the continued treatment of your surgical wounds.
PLEASE RETURN TO THE ER SHOULD YOU DEVELOP FEVERS OR CHILLS, VAGINAL PAIN, ACUTE WORSENING OF YOUR SYMPTOMS, ABDOMINAL PAIN, CHEST PAIN, SHORTNESS OF BREATH, OR ANY OTHER SIGNS OR SYMPTOMS WORRISOME TO YOU.
Interventions
Interventions:
*Risk Screen - Suicide Last Done: 03/04/25 22:12
*General Assessment Last Done: 03/04/25 22:12
*Neglect/Abuse Screening Last Done: 03/04/25 22:12
*ED- Fall Risk Assessment Last Done: 03/05/25 04:29
*ED COVID-19 Vaccine History Last Done: 03/05/25 04:29
*Nursing Disposition Last Done: 03/05/25 04:29
ED-Female Genitourinary Assessment Last Done: 03/05/25 04:29
Discharge Date and Time
Discharge Date/Time: 03/05/25 04:31
Print Language: DUTCH
== END 2025-03-05 04:31 | disposition home or self-care (01) ==
LOC: EMR 22:10
PROVIDERS: EMERGENCY PHYSICIAN Student in an Organized Health Care Education/Training Program; FAMILY PHYSICIAN Internal Medicine
DX: R30.0 Dysuria (principal); N89.8 Other specified noninflammatory disorders of vagina; M06.9 Rheumatoid arthritis, unspecified; F31.9 Bipolar disorder, unspecified; E03.9 Hypothyroidism, unspecified; F41.9 Anxiety disorder, unspecified; F32.A Depression, unspecified; G89.29 Other chronic pain; M54.50 Low back pain, unspecified; F11.20 Opioid dependence, uncomplicated; Z98.890 Other specified postprocedural states; Z85.820 Personal history of malignant melanoma of skin; Z90.49 Acquired absence of other specified parts of digestive tract; Z88.5 Allergy status to narcotic agent; Z88.1 Allergy status to other antibiotic agents; Z91.040 Latex allergy status
CPT/HCPCS: 99283; 80053; 81003; 81025; 85025; 87070; 87210; 87491; 87591

== ENCOUNTER 2025-07-06 18:42 | Emergency (ER) | payer OTHER, SELFPAY ==
[2025-07-06 18:52] VITALS: BP 115/80
[2025-07-06 19:55] VITALS: BMI 31.8
[2025-07-06 20:50] LABS: Urine Character Clear (Clear)
[2025-07-06 21:48] LABS: Hematocrit 39.3 % (37.0-47.0); Hemoglobin 13.1 g/dL (12.0-16.0); Mean Corp Hgb Conc. 33.3 g/dL (33.0-37.0); Mean Corpuscular Volume 92.5 fL (81.0-99.0); Nucleated Red Blood Cells % 0 %; Platelet Count 225 10^3/uL (130-400); Red Cell Dist. Width 13.2 % (11.5-14.5)
[2025-07-06 22:06] LABS: Blood Urea Nitrogen 16 mg/dl (7-17); Calcium 9.1 mg/dl (8.4-10.2); Carbon Dioxide 22 mmol/L (22-30); Chloride 109 mmol/L (98-107); Estimated Creatinine Clearance 114 ml/min; Glucose 78 mg/dl (70-99); Sodium 136 mmol/L (135-145); eGFR > 60.00
[2025-07-06] MEDS: TORADOL 30 MG IV (22:20)
--- NOTE | 2025-07-06 22:51 | ED.GENMED ---
History of Present Illness
General
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
Source: patient
Exam Limitations: none
Time Seen by Provider: 07/06/25 20:07
Nursing documentation reviewed up to this point in time: agreed with
History of Present Illness
History of Present Illness:
Patient to the emergency department with complaint of lower abdomen/pelvic pain. She states her symptoms started a few days ago. She denies any fever or chills. She denies any nausea vomiting or diarrhea. Brought self to the emergency department
for evaluation.
Past History
Past History
ED Past Medical History: Hypothyroidism, Psychiatric (Bipolar disorder, Anxiety, Depression) and Other (Migrainous headaches, ovarian cysts, endometriosis, chronic low back pain-narcotic dependent); Negative Asthma, Cancer, HTN, Hypercholesterolemia
or NIDDM
ED Past Surgical History: Cholecystectomy, Gynecological (Uterine ablation, Hysterectomy), Orthopedic (Bilateral knee arthroscopy, left dorsal hand nodule removal) and Tonsilectomy
Social History
Tobacco: Non-smoker
Alcohol: Occasional
Drug: None
Personal: Single
Living: alone
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
Family History
Family History: Diabetes
Review of Systems
Review of Systems
Allergies reviewed?: Yes
All Other Systems: ROS reviewed and negative except as documented in HPI and ROS
Constitutional: Reports no symptoms
EENT: Reports no symptoms
Respiratory: Reports no symptoms
Cardiac: Reports no symptoms
ABD/GI: Reports abdominal pain
: Reports no symptoms
Musculoskeletal: Reports no symptoms
Skin: Reports no symptoms
Neurological: Reports no symptoms
Psychiatric: Reports no symptoms
Phy Exam
General Physical Exam
General Presentation: well appearing and mild distress
General age: appears stated age
General Skin: warm and dry
General Habitus: normal
General Mental: alert
Gastrointestinal Exam
Gastrointestinal Exam: normal bowel sounds, soft, no organomegaly, no pulsatile mass and non distended
Palpation: left upper quadrant: No tenderness, left lower quadrant: Mild tenderness, right upper quadrant: No tenderness and right lower quadrant: Mild tenderness
Musculoskeletal Exam
Musculoskeletal Exam: full ROM
Skin Exam
Skin Exam: normal color, warm/dry and no rash
Psychiatric Exam
Psychiatric Exam: normal mood/affect
Course
Orders/Labs/Results
Orders:
Orders
07/06/25 20:35
Urinalysis Reflex To Culture Urgent
Date Specimen was Collected: 07/06/25
Time Specimen was Collected: 20:27
07/06/25 21:44
Basic Metabolic Panel Urgent
Complete Blood Count/With Diff Urgent
07/06/25 22:11
CT Abd/pel Without Iv Or Oral Urgent
Comment:
Reason For Exam: lower abd/pelvic pain
Ketorolac [Toradol] 30 mg IV NOW STA
Abnormal Lab Results
07/06/25
21:44
MPV 11.4 H fL
(7.4-10.4)
Chloride 109 H mmol/L
(98-107)
07/06/25 21:44
07/06/25 21:44
Vital Signs
Initial and Last Documented VS:
Initial Vital Signs
Temp Pulse Resp BP Pulse Ox
97.8 F 104 16 115/80 98
07/06/25 18:52 07/06/25 18:52 07/06/25 18:52 07/06/25 18:52 07/06/25 18:52
Last Documented Vital Signs
Temp Pulse Resp BP Pulse Ox
97.8 F 73 18 116/74 100
07/06/25 18:52 07/06/25 23:27 07/06/25 23:27 07/06/25 23:27 07/06/25 23:27
*Radiology
Radiology exam reviewed: radiology read reviewed
*Pulse Oximetry
SaO2: 98
Oxygen Mode of Delivery: Room air
Patient hypoxic: no
*Critical Care Note
Total Time (30-74mins, 75-104mins- exclusive of procedures): Not Applicable
Update Note
Update Note:
Patient to the emergency department for evaluation of right lower quadrant abdominal pain. Symptoms started a few days ago. She denies any fever or chills. She reports some nausea but no vomiting or diarrhea. Vital signs are stable and she
remains afebrile. Labs reviewed CBC 7.4. CMP unremarkable. UA negative for UTI. CT of abdomen and pelvis completed. No acute inflammatory process within the abdomen or pelvis no bowel obstruction appendix appears normal. There is a right
ovarian follicle measuring 1.4 cm. Discussed findings with her. She will be discharged home tonight, close follow-up with PCP. She was given instructions on signs and symptoms to return to the emergency department and she is agreeable to this
plan.
ED Attending Note
-
Portions of this chart may have been created with voice recognition software.� Occasional wrong word or��sound alike� substitutions may have occurred due to the inherent limitations of voice recognition software.
Discharge Plan
Departure
Patient Disposition: Home (Routine Discharge)
Date of Disposition: 07/06/25
Time of Disposition: 23:13
Patient with high blood pressure during this ER visit?: No
Condition: Good
Covid-19: Not Applicable
Discharge Problem:
Abdominal pain
Instructions: Abdominal Pain
Prescriptions:
No Action
duloxetine 60 MG capsule,delayed release(DR/EC)
60 mg PO DAILY
quetiapine [Seroquel] 100 mg Tablet
100 mg PO HS
Patient Comments:
02/25/2025: taken w/ 600mg = 700mg
gabapentin 800 mg Tablet
800 mg PO TID
levothyroxine [Synthroid] 200 mcg Tablet
200 mcg PO DAILY
topiramate [Topamax] 200 mg Tablet
200 mg PO BID
Vraylar 1.5 mg Capsule
1.5 mg PO DAILY
gabapentin 600 mg tablet
600 mg PO HS
Patient Comments:
02/25/2025: taken w/ 800mg = 1,400mg
quetiapine 300 mg tablet
600 mg PO HS
Patient Comments:
05/11/2024: taken w/ 100mg = 700mg
divalproex 250 mg tablet,delayed release (DR/EC)
250 mg PO HS
Patient Comments:
02/25/2025: taken w/ 125mg = 375mg
divalproex 125 mg tablet,delayed release (DR/EC)
125 mg PO HS
Patient Comments:
02/25/2025: taken w/ 250mg = 375mg
alprazolam 2 mg tablet
2 mg PO BID
lamotrigine 100 mg tablet
100 mg PO DAILY
Reyvow 100 mg tablet
100 mg PO DAILYPRN PRN (Reason: migraine)
oxycodone-acetaminophen [Endocet] 5-325 mg tablet
1 tab PO Q8HPRN PRN (Reason: moderate to severe pain)
Patient Comments:
05/11/2024: last filled 04/21/24, 90 tabs for 30 days from [facility]
Compounded Weight Loss Med
7.5 mg SC WEEKLY
Patient Comments:
pt says it is compounded and not on the market
cephalexin [Keflex] 500 mg Capsule
500 mg PO QID
Referrals:
Jeremie Conley I., DO [Family Provider, Internal Medicine] - Tomorrow
Activity Restrictions/Additional Instructions:
Return to the emergency department for any changes in/worsening of your symptoms.
Interventions
Interventions:
*General Assessment Last Done: 07/06/25 18:54
*Neglect/Abuse Screening Last Done: 07/06/25 18:54
*ED COVID-19 Vaccine History Last Done: 07/06/25 18:54
*ED Influenza Vaccine History Last Done: 07/06/25 18:54
[facility] Risk Assessment Tool Last Done: 07/06/25 19:56
*Risk Screen - Suicide (C-SSRS) Last Done: 07/06/25 18:43
*Nursing Disposition Last Done: 07/06/25 23:27
ED-Female Genitourinary Assessment Last Done: 07/06/25 19:54
Discharge Date and Time
Discharge Date/Time: 07/06/25 23:28
Print Language: SINHALA
[2025-07-06 23:27] VITALS: BP 116/74
== END 2025-07-06 23:28 | disposition home or self-care (01) ==
LOC: EMR 18:42
PROVIDERS: Nurse Practitioner; EMERGENCY PHYSICIAN Emergency Medicine; FAMILY PHYSICIAN Internal Medicine
DX: R10.31 Right lower quadrant pain (principal); R10.20 Pelvic and perineal pain unspecified side; E03.9 Hypothyroidism, unspecified; F31.9 Bipolar disorder, unspecified; F41.9 Anxiety disorder, unspecified; F32.A Depression, unspecified; M54.50 Low back pain, unspecified; G89.29 Other chronic pain; F11.20 Opioid dependence, uncomplicated; Z90.49 Acquired absence of other specified parts of digestive tract; Z88.5 Allergy status to narcotic agent; Z88.1 Allergy status to other antibiotic agents; Z91.040 Latex allergy status
CPT/HCPCS: 99284; 96374; 74176; 80048; 81003; 85025